=== PATIENT | male | born 1970 | race Caucasian/White ===

== ENCOUNTER 2023-04-07 07:03 | Outpatient (CLI) | payer SELFPAY ==
--- NOTE | 2023-04-07 07:15 | MR_ITS ---
[address] [address] Phone:?[phone] Fax:?[phone] Referring Physician Information: Bhavin An [address] [facility] [address] Phone:?[phone] Fax:?[phone] Patient:?Deondre Vega D.O.B:?1970 Sex:?Male Phone:?[phone] [facility] MRN:?[id number] Exam Date:?04/07/2023 EXAM: MRI EXAMINATION OF THE LEFT HIP CLINICAL INFORMATION: Left hip pain. Evaluate for possible internal derangement. TECHNICAL INFORMATION: Large [id number] coronal T1 and STIR images were obtained. Thin section coronal and sagittal proton density and T2-weighted spin echo sequences were obtained through the left hip followed by oblique axial proton density and axial fat saturation proton density images. There are no prior studies available for comparison. INTERPRETATION: Hip joint: There is a small to moderate left hip joint effusion. There is a broad appearance of AVN involving the superior, anterior and medial aspects of the left femoral head. There is an associated 1.6 x 0.6 cm subchondral fracture with mild flattening of the subchondral bone overlying the superomedial femoral head. Series 7 image 9 demonstrates an additional 2.2 cm subchondral fracture with mild flattening the subchondral bone of the anterosuperior femoral head. Mild to moderate changes of adjacent bone marrow edema signal. Chondral irregularity and thinning without evidence for associated full- thickness cartilage loss involves the mid to medial surfaces of the superior joint. The gluteus tendon insertions onto the greater trochanter are intact without tear or significant tendinopathy. No evidence of fluid signal abnormality to indicate trochanteric bursitis. Intact appearance of the iliopsoas muscle and tendon insertions. No evidence for iliopsoas bursitis. Bones and joints: Marked L4-5 degenerative disc disease. No occult fracture/stress reaction involves the sacrum. No appreciable changes of SI joint arthrosis. Additional AVN involves the contralateral, right femoral head. No subchondral collapse. No right hip joint effusion. No other bone marrow edema pattern is identified. Musculotendinous structures: Changes of right common hamstring origin tendinopathy with low to moderate grade partial tear. No evidence for an acute muscle belly strain injury. No other muscle belly edema pattern. Intrapelvic contents: No free fluid seen within the pelvis. No discrete intrapelvic mass is identified. Neurovascular structures: No discrete cyst, mass or other compression upon the portions visualized of sciatic or femoral nerves. CONCLUSION: 1. Broad AVN is identified involving the left femoral head. Areas of associated subchondral fracturing with mild flattening of the subchondral bone of the anterior and superomedial femoral head. Adjacent bone marrow edema signal. 2. Chondromalacia without evidence for full-thickness cartilage loss overlying the mid to medial aspect of the superior femoral head. 3. There is a small to moderate hip joint effusion. 4. No evidence for bursitis about the hip. 5. Additional AVN involves the contralateral, right femoral head. 6. Marked L4-5 degenerative disc disease. KES Electronically signed on 04/07/2023 1:31:00 PM by Wilfredo Freed M.D.
== END 2023-04-07 07:04 | disposition home or self-care (01) ==
PROVIDERS: PCP Family Medicine; Visit Provider Physician Assistant
DX: M25.552 Pain in left hip (principal); M94.252 Chondromalacia, left hip; M25.452 Effusion, left hip; M51.36 Other intervertebral disc degeneration, lumbar region
CPT/HCPCS: 73721

== ENCOUNTER 2025-06-15 11:01 | Emergency (ER) | payer SELFPAY ==
--- OUTSIDE RECORDS SUMMARY | 2025-06-15 11:04 | XMS_ITS | Clinical Summary ---
Author Organization [facility] Address [address] [place] [address] Care Team Providers Care Corporate Accounting Manager Name Role Phone Unavailable Primary Care Provider Unavailabl e Source Comments You are receiving this document as you are listed as the primary care provider,follow-up provider, or the patient has been referred to you for consultation.This is in compliance with the Medicare andMedicaid EHR Incentive Program,which states Providers who transition their patient to another setting of careor provider of care or refers their patient to another provider of care shouldprovide summary care record for each transition of care or referral. [facility] Allergies No known active allergies Medications indomethacin (INDOCIN) 50 MG capsule Take 50 mg by mouth three times a day. 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 Gender Identity Not on file Sexual Orientation Not on file Last Filed Vital Signs Vital Sign Reading Time Taken Comments Blood Pressure 141/82 10/17/2021 12:22 PM LINKING MACHINE OPERATOR Pulse 61 10/17/2021 12:22 PM LINKING MACHINE OPERATOR Temperature 36.7 C (98 F) 10/17/2021 12:22 PM LINKING MACHINE OPERATOR Respiratory Rate 20 10/17/2021 12:22 PM LINKING MACHINE OPERATOR Oxygen Saturation 100% 10/17/2021 12:22 PM LINKING MACHINE OPERATOR Inhaled Oxygen Concentration - - Weight - - Height - - Body Mass Index - - Plan of Treatment Health Maintenance Due Date Last Done Comments Colon Cancer Screening Plan Due 1970 Hep C Screening (Preventive Services) 1970 PSA Screening Discussion 1971 HIV Screening (Preventive Services) 1987 Adult Preventive Visit 1989 HepB Vaccine (1) 1990 Cholesterol 2006 Pneumococcal Vaccine 50+ Yrs (1 of 1 - PCV) 2021 Zoster/Shingles Vaccine (1 of 2) 2021 DTaP/Tdap/Td Vaccine (2 - Tdap) 03/06/2023 03/06/2013 COVID-19 Vaccine (1 - season) 2025 Influenza Vaccine (#1) 2025 3, 07/07/2011, 07/08/2010, Additional history exists HepA Vaccine Aged Out No longer eligi ble based on patient's age to complete this topic Hib Vaccine Aged Out No longer eligi ble based on patient's age to complete this topic IPV (Polio) Vaccine Aged Out No longe r eligible based on patient's age to complete this topic MCV4 Vaccine Aged Out No longer eligi ble based on patient's age to complete this topic Meningococcal B Vaccine Aged Out No l onger eligible based on patient's age to complete this topic
--- OUTSIDE RECORDS SUMMARY | 2025-06-15 11:04 | XMS_ITS | Clinical Summary ---
Author Organization [facility] Address [address] [place] [address]. [place] [address] Care Team Providers Care Toy Assembler Wood Name Role Phone No Ref-Primary, Physician Primary Care Provider Allergies No known active allergies Medications polyvinyl alcohol (LIQUIFILM TEARS) 1.4 % ophthalmic solution Place 1 drop Into the left eye as needed for dry eyes 15 mL 10/24/2020 Active valACYclovir (VALTREX) 1000 mg tablet Take 1 tablet (1,000 mg) by mouth 3 times daily for 7 days 21 tablet 10/24/2020 Active Social History Tobacco Use Types Packs/Day Years Used Date Smoking Tobacco: Never Assessed Adolescent Education Answer Date Record ed Getting School Help Needed Not on file 06/10 Sex and Gender Information Value Date Recorded Sex Assigned at Not on file Legal Sex Male 4:45 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 Gender Identity Not on file Sexual Orientation Not on file Last Filed Vital Signs Vital Sign Reading Time Taken Comments Blood Pressure 142/85 10/24/2020 8:00 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 Pulse 87 10/24/2020 8:00 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 Temperature 36.8 C (98.3 F) 10/24/2020 4:57 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 Respiratory Rate 16 10/24/2020 8:31 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 Oxygen Saturation 96% 10/24/2020 8:00 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 Inhaled Oxygen Concentration - - Weight 85.7 kg (188 lb 15 oz) 10/24/2020 4:57 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 Height - - Body Mass Index - - Plan of Treatment Not on file Care Teams Toy Assembler Wood Relationship Specialty Start Date End Date No Ref-Primary, Physician PCP - General 10/24/20
--- OUTSIDE RECORDS SUMMARY | 2025-06-15 11:04 | XMS_ITS | Clinical Summary ---
Author Organization [facility] Address [address] [place] [id number] Care Team Providers Care Trestleman Name Role Phone Jayy Logan MD Primary Care Provider [phone] Allergies No known active allergies Medications multivitamin capsule Take 1 capsule by mouth once daily. 0 09/01/2011 Active Immunizations Immunization Administration Dates Next Due AMB Influenza, IIV3 (Age >=3 years)(Flu Clinic Only) 06/29/2013,07/07/2011,07/08/2010 Influenza, IIV3 (Age >=3 years) 06/19/2009 Social History Tobacco Use Types Packs/Day Years Used Date Smoking Tobacco: Never Smokeless Tobacco: Former Alcohol Use Standard Drinks/Week Comments Not Asked 0 (1 standard drink = 0.6 oz pur e alcohol) Sex and Gender Information Value Date Recorded Sex Assigned at Not on file Legal Sex Male 6:29 AM UPPER AND BOTTOM LACER HAND Gender Identity Not on file Sexual Orientation Not on file Obstetrics History Last Filed Vital Signs Vital Sign Reading Time Taken Comments Blood Pressure 124/78 09/01/2011 3:33 PM UPPER AND BOTTOM LACER HAND tow er Pulse 78 09/01/2011 3:33 PM UPPER AND BOTTOM LACER HAND Temperature 36.6 C (97.9 F) 09/01/2011 3:33 PM UPPER AND BOTTOM LACER HAND Respiratory Rate - - Oxygen Saturation - - Inhaled Oxygen Concentration - - Weight 84.3 kg (185 lb 12.8 oz) 09/01/2011 3:33 PM UPPER AND BOTTOM LACER HAND Height - - Body Mass Index - - Plan of Treatment Health Maintenance Due Date Last Done Comments Tetanus booster 1982 Depression screening for age 12+ 1983 HIV for age 15-65 1986 BMI (ht and wt on same day) for age 18+ 1989 Hepatitis C screening for ag e 18-79 1989 Hepatitis B series for 19+ ( 1 of 3 - 19+ 3-dose series) 1990 Colonoscopy through age 75 2016 Lipids for age 45-75 2016 Pneumococcal series for age 50+ (1 of 1 - PCV) 2021 Zoster (shingles) series for age 50+ (1 of 2) 2021 COVID-19 vaccine series (1 - 2023- season) 2025 Influenza Vaccine (#1) 2025 3, 07/07/2011, 07/08/2010, Additional history exists RSV vaccine for adults or (1 - 1-dose 75+ series) [address] [facility] Care Teams Trestleman Relationship Specialty Start Date End Date Jayy Logan MD [address] [place] [address] [facility] - General 06/30/06
[2025-06-15 11:14] VITALS: BP 142/92; PULSE 89; RESP 18; TEMP 36.6; O2SAT 97; BMI 28.0
--- NOTE | 2025-06-15 11:30 | CRLHL7_ITS ---
For Patients: As a result of the Century Cures Act, medical imaging exams and procedure reports are released immediately into your electronic medical record. You may view this report before your referring provider. If you have questions, please contact your health care provider. INDICATION: Elbow Swelling and pain TECHNIQUE: Elbow radiograph 3 views right COMPARISON: None FINDINGS: Bone: No acute fractures or aggressive bone lesions are identified. Joint: The elbow joint is unremarkable. No significant displacement of the anterior or posterior fat pads noted to suggest an effusion but the lateral exam is limited by patient rotation. Soft tissue: Mild swelling noted over the olecranon. No radiopaque foreign bodies are seen. IMPRESSION: 1. No acute osseous injuries are noted. 2. No significant displacement of the anterior or posterior fat pads noted to suggest an effusion but the lateral exam is limited by patient rotation. Dictated by: Alfa Portillo MD @ 06/15/2025 12:46:25 (Electronically Signed)
--- NOTE | 2025-06-15 11:30 | CRLHL7_ITS ---
For Patients: As a result of the Cures Act, medical imaging exams and procedure reports are released immediately into your electronic medical record. You may view this report before your referring provider. If you have questions, please contact your health care provider. INDICATION: Swelling and pain. TECHNIQUE: Left foot three views. COMPARISON: None. FINDINGS: No acute fracture or dislocation. [id number] degenerative changes greatest at the 1st metatarsophalangeal joint. There are ill-defined lucencies in the 1st metatarsal head and base of the proximal 1st phalanx with adjacent soft tissue swelling. Calcaneal enthesophytes. No radiopaque foreign body evident in the soft tissues. IMPRESSION: Findings worrisome for gout related arthropathy or other cellulitis near the left 1st metatarsal phalangeal joint. Dictated by Asad Obrien MD @ 06/15/2025 1:15:14 PM (Electronically Signed)
--- NOTE | 2025-06-15 11:30 | CRLHL7_ITS ---
For Patients: As a result of the Cures Act, medical imaging exams and procedure reports are released immediately into your electronic medical record. You may view this report before your referring provider. If you have questions, please contact your health care provider. INDICATION: Swelling and pain. TECHNIQUE: Right foot three views. COMPARISON: None. FINDINGS: Mild degenerative changes greatest at the 1st metatarsophalangeal joint. Calcaneal enthesophytes. No acute or other osseous abnormality. No radiopaque foreign body in the soft tissues. IMPRESSION: No acute osseous abnormality. Dictated by Asad Obrien MD @ 06/15/2025 1:16:37 PM (Electronically Signed)
--- NOTE | 2025-06-15 11:30 | CRLHL7_ITS ---
For Patients: As a result of the Century Cures Act, medical imaging exams and procedure reports are released immediately into your electronic medical record. You may view this report before your referring provider. If you have questions, please contact your health care provider. INDICATION: Wrist Swelling and pain TECHNIQUE: Wrist radiograph 3 views left COMPARISON: None FINDINGS: Bone: No acute fractures or aggressive bone lesions are identified. Joint: The radiocarpal, carpal, and carpometacarpal joints are unremarkable in appearance. Soft tissue: Unremarkable. No radiopaque foreign bodies are seen. IMPRESSION: 1. No acute osseous injuries are noted. Dictated by: Alfa Portillo MD @ 06/15/2025 12:47:01 (Electronically Signed)
[2025-06-15 11:53] LABS: Hematocrit* 39.7 % (37.0-53.0); Hemoglobin* 13.5 gm/dL (13.5-17.5); Immature Granulocytes Pct Auto 1.3 %; Mean Corpuscular HGB Conc 34 gm/dL (32-36); Mean Corpuscular Hemoglobin 31 pg (26-34); Mean Corpuscular Volume 92 fL (80-100); RDW Coefficient of Variation % 12.3 % (11.5-15.5); Red Blood Count* 4.32 m/uL (4.30-5.90); White Blood Count* 15.84 K/uL (4.50-11.00)
[2025-06-15 11:55] LABS: Immature Granulocytes Abs Auto 0.20 K/uL (0.00-0.30); Lymphocytes Absolute Auto 0.60 K/uL (0.90-2.90); Slide Review Reflex No
[2025-06-15 12:06] LABS: Albumin* 4.0 g/dL (3.3-5.0); Chloride* 97 mmol/L (96-114); Sodium* 136 mmol/L (135-149)
[2025-06-15 12:07] LABS: Potassium* 3.8 mmol/L (3.6-5.1)
[2025-06-15 12:09] LABS: Alanine Aminotransferase* 221 U/L (4-50); Alkaline Phosphatase* 139 U/L (40-150); Anion Gap 10 mEq/L (7-15); Aspartate Amino Transferase* 138 U/L (12-35); Bilirubin Direct* 0.2 mg/dL (0.0-0.5); Bilirubin Total* 0.7 mg/dL (0.1-1.5); Blood Urea Nitrogen* 16 mg/dL (7-30); Carbon Dioxide* 29 mmol/L (20-32); Creatinine* 0.8 mg/dL (0.5-1.5); Est. Creatinine Clearance* 98.69; Estimated Glomerular Filt Rate 105 ml/min; Total Protein* 7.7 g/dL (6.0-8.3)
[2025-06-15 12:10] LABS: Calcium* 9.5 mg/dL (8.4-10.6); Glucose* 273 mg/dL (60-115)
[2025-06-15 12:27] LABS: Procalcitonin* 0.18 ng/mL (<0.50)
--- NOTE | 2025-06-15 13:02 | ED.LOWEXIN ---
HPI - Extremity Injury (Lower) General Date Seen: 06/15/25 Chief Complaint: Extremity Pain/Injury, Lower Stated Complaint: Possible Gout, Left foot, right elbow Time Seen by Provider: 06/15/25 11:04 Source: patient, family, RN notes reviewed and old records reviewed Mode of arrival: ambulatory Limitations: no limitations History of Present Illness HPI Narrative: Patient is the 55-year-old gentleman who suffer from gout in the past presents here with gout worsening over the past 1-2 weeks, he thinks this all started with a fall last , ended up in the [facility], was diagnosed with L4-L5 herniation. He was prescribed a prednisone taper starting on the , and this was increased 2 days after. To 50 mg a day, he has noted joint swelling, in his left 1st MTP, right 5th toe, right elbow, left wrist, no history of trauma to any of these injuries except the left wrist. Where he fell in the never had this x-rayed at the [facility]. He notes that it is very sore and swollen maybe a little bit less painful than it was he was initially given oxycodone but could not handle this. It is just been on the prednisone. Is actually not physically seen a physician or provider, only did [facility]. No history of any IVs, use of street drugs, history of sepsis, injury fevers chills or sweats, just this pain and swelling. History of a right hip replacement secondary to avascular necrosis.Here with his , No history of tick bites, works as the [employer] Severity: moderate Related Data Home Medications ?Medication ?Instructions ?Recorded ?Confirmed prednisone 50 mg tablet 50 mg PO DAILY 06/15/25 06/15/25 Previous Rx's ?Medication ?Instructions ?Recorded colchicine 0.6 mg capsule 0.6 mg PO BID #60 caps 06/15/25 Allergies Allergy/AdvReac Type Severity Reaction Status Date / Time oxycodone AdvReac chilled, Verified 06/15/25 11:13 vomiting Review of Systems Status of ROS: Reports: 10 or more systems reviewed and unremarkable except as noted in History and below [facility] Medical History Right knee pain (~04/08/21) ?M25.561 - Pain in right knee (ICD-10) Social History Smoking Status: Never smoker How often do you have a drink containing alcohol: 2-4 times a month AUDIT-C Alcohol total score: 2 Non-prescribed substance use: denies use Exam Narrative: Exam Narrative: On examination, very striking tophi on his left 1st MTP, with some redness around it right red 5th metatarsal, mild swelling noted of the right elbow, inability to fully move it he tells me. On examination is right elbow has flexion from 30 agreed degrees through 90. 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 He is able to come approximately 10? past neutral on the left side. Some very mild swelling of his D IP is are noted. Right 5th toe swollen, along with the left MTP. Pulses are normal, no overlying cellulitis. Oropharynx normal no lymphadenopathy anterior posterior chains, chest is good air entry bilaterally heart sounds are normal, slightly obese abdomen, no tenderness to palpation and no organomegaly. Const: Vital Signs, click to edit/add: Vital Signs - 24 hr 06/15/25 11:14 Temperature 97.8 F Pulse Rate [Pulse Oximeter] 89 Respiratory Rate 18 Blood Pressure [Ri ght Upper Arm] 142/92 H Pulse Oximetry 97 Oxygen Delivery Me thod Room Air Documenting provider has reviewed patient's vital signs: yes Course Course ED Course: I went back in and talked to the patient although we cannot totally rule out a sepsis causing this this does look like polyarticular gout. Given the tophi on the left foot. And the presentation in gentleman with really no risk factors for infectious etiology. This is would be atypical for rheumatoid arthritis/, Lyme arthritis, or gonococcal. His liver transaminases tests were slightly elevated more likely from DENNY then in a functional problem. Glucose was significantly elevated also. White count was elevated which often see with gout, procalcitonin was normal CRP was elevated also. After discussion with him I think it would be reasonable to trial a slightly lower dose of colchicine, to see if we give him some relief. 0.5 mg p.o. b.i.d., close follow-up he does have a primary care physician so I suggested Dr. Bustos. He lots of questions about the gouty tophi, unfortunately we do not do a lot with this, has surgery on anything like this can often flare. Minimal use of acetaminophen given the elevation in transaminases is suggested, and we talked about use of hydrocodone, we will use a small supply this. Went over signs and symptoms of worsening including complications secondary to use of the colchicine. He may need help urine all more on the correction, as his acute at elevation is not seen on uric acid. Vital Signs Vital signs: Initial Vital Signs Temperature 97.8 F 06/15/25 11:14 Temperature Source Temporal Artery Scan 06/15/25 11:14 Pulse Rate 89 06/15/25 11:14 Respiratory Rate 18 06/15/25 11:14 Blood Pressure 142/92 H 06/15/25 11:14 Blood Pressure Mean 108 H 06/15/25 11:14 Blood Pressure Position Semi-Fowlers 06/15/25 11:14 Pulse Oximetry 97 06/15/25 11:14 Oxygen Delivery Method Room Air 06/15/25 11:14 Vital Signs Temperature 97.8 F 06/15/25 11:14 Pulse Rate 89 06/15/25 11:14 Respiratory Rate 18 06/15/25 11:14 Blood Pressure 142/92 H 06/15/25 11:14 Pulse Oximetry 97 06/15/25 11:14 Oxygen Delivery Method Room Air 06/15/25 11:14 Temperature 97.8 F 06/15/25 11:14 Pulse Rate 89 06/15/25 11:14 Respiratory Rate 18 06/15/25 11:14 Blood Pressure 142/92 H 06/15/25 11:14 Pulse Oximetry 97 06/15/25 11:14 Oxygen Delivery Method Room Air 06/15/25 11:14 MDM - Extremity Injury (Lower) MDM Narrative Medical decision making narrative: During this evaluation I think gout is leading hypothesis, specially with the tophi, other possibilities include septic arthritis. Lyme disease, rheumatoid arthritis, endocarditis with septic and emboli. Medical Records Attestation: I reviewed the patient's medical records. Lab Data Attestation: I reviewed the patient's lab results. Labs: Lab Results 06/15/25 Range/Units 11:45 WBC 15.84 H (4.50-11.00) K/uL RBC 4.32 (4.30-5.90) m/uL Hgb 13.5 (13.5-17.5) gm/dL Hct 39.7 (37.0-53.0) % MCV 92 (80-100) fL MCH 31 (26-34) pg MCHC 34 (32-36) gm/dL RDW Coeff of Eufemia 12.3 (11.5-15.5) % Plt Count 351 (140-440) K/uL Neut % (Auto) 89.4 H (42.0-72.0) % Lymph % (Auto) 3.6 L (20-44) % [place] % (Auto) 5.6 (0.0-11.0) % Eos % (Auto) 0.0 (0.0-7.0) % Baso % (Auto) 0.1 (0.0-3.0) % Neut # (Auto) 14.20 H (1.7-7.0) K/uL Lymph # (Auto) 0.60 L (0.90-2.90) K/uL [place] # (Auto) 0.90 (0.00-0.90) K/UL Eos # (Auto) 0.00 (0.00-0.50) K/uL Baso # (Auto) 0.00 (0.00-0.30) K/uL Abs Immat Gran (auto) 0.20 (0.00-0.30) K/uL Imm/Tot Granulo (auto) 1.3 % Sodium 136 (135-149) mmol/L Potassium 3.8 (3.6-5.1) mmol/L Chloride 97 (96-114) mmol/L Carbon Dioxide 29 (20-32) mmol/L Anion Gap 10 (7-15) mEq/L BUN 16 (7-30) mg/dL Creatinine 0.8 (0.5-1.5) mg/dL Estimated Creat Clear 98.69 Estimated GFR 105 ml/min Glucose 273 H (60-115) mg/dL Uric Acid 6.9 (2.2-8.4) mg/dL Calcium 9.5 (8.4-10.6) mg/dL Total Bilirubin 0.7 (0.1-1.5) mg/dL Direct Bilirubin 0.2 (0.0-0.5) mg/dL AST 138 H (12-35) U/L ALT 221 H (4-50) U/L Alkaline Phosphatase 139 (40-150) U/L C-Reactive Protein 5.8 H (0.5-1.0) mg/dL Total Protein 7.7 (6.0-8.3) g/dL Albumin 4.0 (3.3-5.0) g/dL Procalcitonin 0.18 (<0.50) ng/mL Imaging Data X-ray wrist: Attestation: I have reviewed the pertinent imaging results. My impression: Evidence of significant narrowing of the 1st MTP joint on the thinking left foot Radiologist's impression: atient: Deondre Vega MR#: [id number] : 1970 Acct:[id number] Loc: ED Service Date: 06/15/25 Attending : Ordering Physician: Santino Uriostegui M.D. Date of Service: 06/15/25 Procedure(s): XR wrist LT min 3V Accession Number(s): [id number] cc: Provider,Not a Local; Santino Uriostegui M.D.~ For Patients: As a result of the Cures Act, medical imaging exams and procedure reports are released immediately into your electronic medical record. You may view this report before your referring provider. If you have questions, please contact your health care provider. INDICATION: Wrist Swelling and pain TECHNIQUE: Wrist radiograph 3 views left COMPARISON: None FINDINGS: Bone: No acute fractures or aggressive bone lesions are identified. Joint: The radiocarpal, carpal, and carpometacarpal joints are unremarkable in appearance. Soft tissue: Unremarkable. No radiopaque foreign bodies are seen. IMPRESSION: 1. No acute osseous injuries are noted. Dictated by: Alfa Portillo MD @ 06/15/2025 12:47:01 (Electronically Signed)[place] [address] Diagnostic Imaging Report Patient: Deondre Vega MR#: [id number] : 1970 Acct:[id number] Loc: ED Service Date: 06/15/25 Attending : Ordering Physician: Santino Uriostegui M.D. Date of Service: 06/15/25 Procedure(s): XR elbow RT min 3V Accession Number(s): [id number] cc: Provider,Not a Local; Santino Uriostegui M.D.~ For Patients: As a result of the Cures Act, medical imaging exams and procedure reports are released immediately into your electronic medical record. You may view this report before your referring provider. If you have questions, please contact your health care provider. INDICATION: Elbow Swelling and pain TECHNIQUE: Elbow radiograph 3 views right COMPARISON: None FINDINGS: Bone: No acute fractures or aggressive bone lesions are identified. Joint: The elbow joint is unremarkable. No significant displacement of the anterior or posterior fat pads noted to suggest an effusion but the lateral exam is limited by patient rotation. Soft tissue: Mild swelling noted over the olecranon. No radiopaque foreign bodies are seen. IMPRESSION: 1. No acute osseous injuries are noted. 2. No significant displacement of the anterior or posterior fat pads noted to suggest an effusion but the lateral exam is limited by patient rotation. Dictated by: Alfa Portillo MD @ 06/15/2025 12:46:25 (Electronically Signed)[address] [address] Diagnostic Imaging Report Patient: Deondre Vega MR#: [id number] : 1970 Acct:[id number] Loc: ED Service Date: 06/15/[address]: Ordering Physician: Santino Uriostegui M.D. Date of Service: 06/15/25 Procedure(s): XR foot RT min 3V Accession Number(s): [id number] cc: Provider,Not a Local; Santino Uriostegui M.D.~ For Patients: As a result of the Cures Act, medical imaging exams and procedure reports are released immediately into your electronic medical record. You may view this report before your referring provider. If you have questions, please contact your health care provider. INDICATION: Swelling and pain. TECHNIQUE: Right foot three views. COMPARISON: None. FINDINGS: Mild degenerative changes greatest at the 1st metatarsophalangeal joint. Calcaneal enthesophytes. No acute or other osseous abnormality. No radiopaque foreign body in the soft tissues. IMPRESSION: No acute osseous abnormality. Dictated by Asad Obrien MD @ 06/15/2025 1:16:37 PM (Electronically Signed)[address] [address] Diagnostic Imaging Report Patient: Deondre Vega MR#: [id number] : 1970 Acct:[id number] Loc: ED Service Date: 06/15/[address]: Ordering Physician: Santino Uriostegui M.D. Date of Service: 06/15/25 Procedure(s): XR foot LT min 3V Accession Number(s): [id number] cc: Provider,Not a Local; Santino Uriostegui M.D.~ For Patients: As a result of the Cures Act, medical imaging exams and procedure reports are released immediately into your electronic medical record. You may view this report before your referring provider. If you have questions, please contact your health care provider. INDICATION: Swelling and pain. TECHNIQUE: Left foot three views. COMPARISON: None. FINDINGS: No acute fracture or dislocation. Ovmi-bj-jhlbfkdl degenerative changes greatest at the 1st metatarsophalangeal joint. There are ill-defined lucencies in the 1st metatarsal head and base of the proximal 1st phalanx with adjacent soft tissue swelling. Calcaneal enthesophytes. No radiopaque foreign body evident in the soft tissues. IMPRESSION: Findings worrisome for gout related arthropathy or other cellulitis near the left 1st metatarsal phalangeal joint. Dictated by Asad Obrien MD @ 06/15/2025 1:15:14 PM (Electronically Signed) Discharge Plan Discharge Clinical Impression: Gout, Elevated blood sugar, Elevated transaminase level Patient Disposition: Home w/ Parent or Adult Condition: Unchanged Instructions: Low Purine Diet (ED), Gout (ED), Nondiabetic Hyperglycemia (ED), Diabetic Hyperglycemia (ED) Additional Instructions: Home rest take your colchicine as directed, stop the prednisone. Follow-up with Dr. Bustos as directed. I would see him this week. He should see a difference with the cold seen within a day or 2. I had decreased her dose is slightly as there was some elevation of your liver function test. I suspect that this is from non alcoholic steatohepatitis. Return here if increasing swelling redness fevers chills or signs of infection which I am not seeing today. Might help to be on a low purine diet. Take the colchicine as directed, take it for 3-4 days after he get resolution of your swelling and pain. Stop it if significant nausea vomiting, abdominal pain or diarrhea. Activity Level: Light activity Discharge Diet: Other Diet Detail: Low purine diet Prescriptions: New colchicine 0.6 mg capsule 0.6 mg PO BID Qty: 60 2RF No Action prednisone 50 mg tablet 50 mg PO DAILY Follow Up/Referrals: Dylan Bustos MD [Staff Physician, Family Practice] Provider,Not a Local [Primary Care Provider, Family Practice] Stand Alone Forms: [facility] Info Instructions
== END 2025-06-15 14:23 | disposition home or self-care (01) ==
PROVIDERS: Emergency Provider Family Medicine
DX: M10.9 Gout, unspecified (principal); R73.9 Hyperglycemia, unspecified; R74.01 Elevation of levels of liver transaminase levels; M79.672 Pain in left foot; M79.671 Pain in right foot; M25.521 Pain in right elbow; M25.532 Pain in left wrist; Z79.52 Long term (current) use of systemic steroids
CPT/HCPCS: 36415; 73080; 73110; 73630; 80048; 80076; 84145; 84550; 85025; 86140; 87040; 99284; 99285

== ENCOUNTER 2025-06-18 12:22 | Outpatient (CLI) | payer OTHER, SELFPAY | END 2025-06-18 12:23 | disposition home or self-care (01) | PROVIDERS: PCP Family Medicine; Visit Provider Family Medicine | DX: M25.552 Pain in left hip (principal); M87.051 Idiopathic aseptic necrosis of right femur; M87.052 Idiopathic aseptic necrosis of left femur; M10.9 Gout, unspecified; R73.9 Hyperglycemia, unspecified | CPT/HCPCS: 84550; 86038; 86140; 86431 ==

== ENCOUNTER 2025-07-16 07:56 | Outpatient (CLI) | payer OTHER, SELFPAY | END 2025-07-16 07:57 | disposition home or self-care (01) | PROVIDERS: PCP Family Medicine; Visit Provider Family Medicine | DX: R53.83 Other fatigue (principal); M10.9 Gout, unspecified; Z13.9 Encounter for screening, unspecified | CPT/HCPCS: 80061; 80076; 84403; 84550; G0103 ==

== ENCOUNTER 2025-08-03 08:26 | Inpatient (IN) | payer OTHER, SELFPAY ==
[2025-08-03] VITALS (23 sets, daily range): BP systolic 134–169; BP diastolic 87–120; PULSE 57–70; RESP 14–18; TEMP 36.3–36.7; O2SAT 94–98; BMI 29.0
--- NOTE | 2025-08-03 08:52 | CRLHL7_ITS ---
For Patients: As a result of the Century Cures Act, medical imaging exams and procedure reports are released immediately into your electronic medical record. You may view this report before your referring provider. If you have questions, please contact your health care provider. INDICATION: Gout. Wound. Infection. TECHNIQUE: Intravenous contrast enhanced CT of the left foot. 91 mL Isovue 370 intravenous contrast was administered. COMPARISON: Radiographs from 06/15/2025. FINDINGS: There is severe arthrosis of the 1st MTP joint space with erosions and both capsular and periarticular soft tissue calcifications compatible with gouty arthropathy. There are also capsular and periarticular calcifications about the interphalangeal joint of the great toe which likely relate to gouty arthropathy. Small erosion of the dorsal base of the distal phalanx. There is mineralization/calcification associated with a few other joint spaces. Erosion of the medial aspect of the talar head likely relate to gouty arthropathy. No acute fracture. There is a soft tissue wound involving the medial forefoot. Infiltration of the underlying soft tissues may relate to cellulitis versus changes related to the patient`s underlying gouty arthropathy. No tracking soft tissue gas. Possible small amount of subcutaneous fluid along the medial aspect of the 1st MTP joint region. No moderately large well-defined collection. IMPRESSION: 1. Findings compatible with gouty arthropathy involving the left foot with capsular and periarticular soft tissue calcifications, erosions and soft tissue infiltration. 2. Soft tissue wound involving the medial forefoot. The infiltration of the underlying soft tissues may relate to cellulitis versus changes of the patient`s gouty arthropathy. 3. Possible small amount of medial subcutaneous fluid adjacent to the 1st MTP joint region underlying the wound. No moderate or large well-defined collection. No tracking soft tissue gas. Please note that all CT scans at this facility use dose modulation, iterative reconstruction, and/or weight-based dosing when appropriate to reduce radiation dose to as low as reasonably achievable. Dictated by Gurpreet Avalos MD @ 08/04/2025 7:35:38 AM (Electronically Signed)
--- NOTE | 2025-08-03 08:54 | ED_ITS ---
HPI - General Adult General Chief complaint: Laceration/Wound Stated complaint: wound on left foot Time Seen by Provider: 08/03/25 08:33 History of Present Illness HPI narrative: Patient is a 55-year-old gentleman who has known history of gout. He has obvious chronic lateral swelling of the 1st metatarsal joint left foot.. Over last several days joint is become more red and swollen. It ruptured earlier today is draining exudate material. Patient has no signs of systemic infection. He has had no fevers no chills no night sweats. The redness of the foot has extended up into the anterior ankle. Patient states he has been compliant with his extensive gout regiment. He did not open the wound today but has proximally 2.5 cm ulceration on the lateral aspect of the 1st MTP of the left foot. Patient's pain is moderate. He has been trying to stay off his foot the last several days. Related Data Previous Rx's ?Medication ?Instructions ?Recorded allopurinol 300 mg tablet 300 mg PO QDAY #90 tabs 06/19 06/12 colchicine 0.6 mg capsule 0.6 mg PO BID #180 caps 06/19 06/12 probenecid 500 mg tablet 500 mg PO BID #180 tabs 06/19 06/12 prednisone 10 mg tablet 10 mg PO QDAY #30 tabs 07/31 Allergies Allergy/AdvReac Type Severity Reaction Status Date / Time oxycodone AdvReac chilled, Verified 08/03/25 08:35 vomiting Review of Systems Status of ROS: Reports: 10 or more systems reviewed and unremarkable except as noted in History and below [facility] Medical History Avascular necrosis of bones of both hips ?M87.051 - 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) ?M87.052 - Idiopathic aseptic necrosis of left femur (ICD-10) Gout ?M10.9 - Gout, unspecified (ICD-10) Surgical History History of total left hip arthroplasty ?Z96.642 - Presence of left artificial hip joint (ICD-10) 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: , 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, 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 What is your current living situation?: I presently have a place to live Problems where you live: no known problems In the past 12 months, utilities in danger of being shut off: no In past 12 months, lack of transportation kept you from medical appts, meetings, work, or getting things needed for daily living: no In the past 12 mos, have been you worried that your food would run out before you had money to buy more?: never true In the past 12 mos, the food you bought just didn't last and you didn't have money to buy more?: never true Smoking Status: Never smoker How often do you have a drink containing alcohol: 2-4 times a month AUDIT-C Alcohol total score: 2 Non-prescribed substance use: denies use How often does anyone, including family, friends and others, physically hurt you : never How often does anyone, including family, friends and others, insult or talk down to you: never How often does anyone, including family, friends and others, threaten you with harm: never How often does anyone, including family, friends and others, scream or curse at you: never Exam Narrative: Exam Narrative: EXAM GENERAL: Patient appears comfortable and well. EYES: No scleral icterus. ENT: Tympanic membranes and oropharynx normal. THYROID: no thyroid nodules or thyromegaly. LYMPH: No supraclavicular or cervical lymphadenopathy. SKIN: Visible skin seen during exam normal or with benign process only. EXT: Erythema noted in the superior foot on the left with significant ulceration with exudate noted over the medial aspect of the 1st MTP. HEART: Regular rate and rhythm with no murmurs, rubs, or gallops. LUNGS: Clear to auscultation bilaterally with no crackles or wheezes. ABD: Soft, non tender, non distended. PSYCH: Good eye contact, speech is not pressured. Const: Vital Signs, click to edit/add: Vital Signs - 24 hr 08/03/25 08:37 Temperature 97.5 F L Pulse Rate [Pulse Oximeter] 58 L Respiratory Rate 14 Blood Pressure [Ri ght Upper Arm] 135/87 Pulse Oximetry 98 Oxygen Delivery Me thod Room Air Course Course ED Course: Did collect broke out all lactate a CRP ESR CBC comprehensive metabolic panel blood cultures x2. I get a CT of his left foot and I did send off a uric acid level. Vital Signs Vital signs: Initial Vital Signs Temperature 97.5 F L 08/03/25 08:37 Temperature Source Temporal Artery Scan 08/03/25 08:37 Pulse Rate 58 L 08/03/25 08:37 Pulse Rhythm Regular 08/03/25 08:37 Respiratory Rate 14 08/03/25 08:37 Blood Pressure 135/87 08/03/25 08:37 Blood Pressure Mean 103 08/03/25 08:37 Blood Pressure Position Sitting 08/03/25 08:37 Pulse Oximetry 98 08/03/25 08:37 Oxygen Delivery Method Room Air 08/03/25 08:37 Vital Signs Temperature 97.5 F L 08/03/25 08:37 Pulse Rate 58 L 08/03/25 08:37 Respiratory Rate 14 08/03/25 08:37 Blood Pressure 135/87 08/03/25 08:37 Pulse Oximetry 98 08/03/25 08:37 Oxygen Delivery Method Room Air 08/03/25 08:37 Temperature 97.5 F L 08/03/25 08:37 Pulse Rate 58 L 08/03/25 08:37 Respiratory Rate 14 08/03/25 08:37 Blood Pressure 135/87 08/03/25 08:37 Pulse Oximetry 98 08/03/25 08:37 Oxygen Delivery Method Room Air 08/03/25 08:37 Medications Administered Medications: Discontinued Medications Generic Name Dose Route Start Last Admin Trade Name Freq PRN Reason Stop Dose Admin Piperacillin Sod/Tazobactam 100 mls @ 200 mls/hr 08/03/25 08:58 08/03/25 09:53 Sod 3.375 gm/ Sodium Chloride IVPB 08/03/25 08:59 200 mls/hr ONCE ONE Administration Medical Decision Making [facility] Narrative Medical decision making narrative: Patient presents with weeping draining lesion on the right foot. He has history of gout which broke open last night now he has erythema extending up the superior aspect of his foot. He has had no fevers no chills no night sweats. Does have leukocytosis and elevated inflammatory markers. I did do a CT of his foot and he has no evidence of abscess. After cultures were obtained I did treat with Zosyn and vancomycin. Patient case discussed with hospitalist as well as Orthopedics patient will be proceeding to the operating room. Lab Data Labs: Lab Results 08/03/25 Range/Units 09:12 WBC 16.65 H (4.50-11.00) K/uL RBC 4.42 (4.30-5.90) m/uL Hgb 13.3 L (13.5-17.5) gm/dL Hct 40.3 (37.0-53.0) % MCV 91 (80-100) fL MCH 30 (26-34) pg MCHC 33 (32-36) gm/dL RDW Coeff of Eufemia 12.9 (11.5-15.5) % Plt Count 242 (140-440) K/uL Neut % (Auto) 79.6 H (42.0-72.0) % Lymph % (Auto) 11.2 L (20-44) % [place] % (Auto) 7.9 (0.0-11.0) % Eos % (Auto) 0.2 (0.0-7.0) % Baso % (Auto) 0.1 (0.0-3.0) % Neut # (Auto) 13.30 H (1.7-7.0) K/uL Lymph # (Auto) 1.90 (0.90-2.90) K/uL [place] # (Auto) 1.30 H (0.00-0.90) K/UL Eos # (Auto) 0.00 (0.00-0.50) K/uL Baso # (Auto) 0.00 (0.00-0.30) K/uL Abs Immat Gran (auto) 0.20 (0.00-0.30) K/uL Imm/Tot Granulo (auto) 1.0 % ESR 79 H (2-15) mm/hr Sodium 140 (135-149) mmol/L Potassium 4.8 (3.6-5.1) mmol/L Chloride 103 (96-114) mmol/L Carbon Dioxide 28 (20-32) mmol/L Anion Gap 9 (7-15) mEq/L BUN 16 (7-30) mg/dL Creatinine 0.8 (0.5-1.5) mg/dL Estimated Creat Clear 98.69 Estimated GFR 105 ml/min Glucose 118 H (60-115) mg/dL Uric Acid 3.8 (2.2-8.4) mg/dL Calcium 9.6 (8.4-10.6) mg/dL Total Bilirubin 1.0 (0.1-1.5) mg/dL AST 22 (12-35) U/L ALT 35 (4-50) U/L Alkaline Phosphatase 94 (40-150) U/L C-Reactive Protein 17.6 H (0.5-1.0) mg/dL Total Protein 7.7 (6.0-8.3) g/dL Albumin 4.1 (3.3-5.0) g/dL Procalcitonin 1.30 H (<0.50) ng/mL Discharge Plan Discharge Clinical Impression: Gout Patient Disposition: Admitted As Observation Condition: Stable Activity Level: Other Discharge Diet: Other
[2025-08-03 09:22] LABS: Hematocrit* 40.3 % (37.0-53.0); Hemoglobin* 13.3 gm/dL (13.5-17.5); Immature Granulocytes Pct Auto 1.0 %; Mean Corpuscular HGB Conc 33 gm/dL (32-36); Mean Corpuscular Hemoglobin 30 pg (26-34); Mean Corpuscular Volume 91 fL (80-100); RDW Coefficient of Variation % 12.9 % (11.5-15.5); Red Blood Count* 4.42 m/uL (4.30-5.90); White Blood Count* 16.65 K/uL (4.50-11.00)
[2025-08-03 09:24] LABS: Immature Granulocytes Abs Auto 0.20 K/uL (0.00-0.30); Lymphocytes Absolute Auto 1.90 K/uL (0.90-2.90); Slide Review Reflex No
[2025-08-03 09:35] LABS: Albumin* 4.1 g/dL (3.3-5.0); Chloride* 103 mmol/L (96-114); Sodium* 140 mmol/L (135-149)
[2025-08-03 09:36] LABS: Potassium* 4.8 mmol/L (3.6-5.1)
[2025-08-03 09:38] LABS: Alanine Aminotransferase* 35 U/L (4-50); Anion Gap 9 mEq/L (7-15); Aspartate Amino Transferase* 22 U/L (12-35); Blood Urea Nitrogen* 16 mg/dL (7-30); Carbon Dioxide* 28 mmol/L (20-32); Creatinine* 0.8 mg/dL (0.5-1.5); Est. Creatinine Clearance* 98.69; Estimated Glomerular Filt Rate 105 ml/min
[2025-08-03 09:39] LABS: Alkaline Phosphatase* 94 U/L (40-150); Bilirubin Total* 1.0 mg/dL (0.1-1.5); Calcium* 9.6 mg/dL (8.4-10.6); Glucose* 118 mg/dL (60-115); Total Protein* 7.7 g/dL (6.0-8.3)
[2025-08-03] MEDS: PIPERACILLIN/TAZOBACTAM 3.375 GM in 0.9 % SODIUM CHLORIDE Mini-bag 100 ML IVPB ×3 (09:53→22:16)
[2025-08-03 10:00] LABS: Erythrocyte SedimentationRate* 79 mm/hr (2-15)
[2025-08-03 10:27] LABS: Procalcitonin* 1.30 ng/mL (<0.50)
--- NOTE | 2025-08-03 11:28 | PM.IMHP1 ---
Assessment and Plan Assessment and plan (1) Joint abscess: Problem comment: infected tophi? joint abscess? staph likely on gram stain. to the OR for I/D and joint exam await findings from the OR for the rest of the care plan Status: Acute (2) Gout: Problem comment: Left 1st MTP, right 2nd and 5th DTPs, right elbow tophi present uric acid normal no crystal examine previously; CPPD? allopurinol, colchine, probenecid from PCP Status: Acute Hospitalist- H&P: HPI History of Present Illness Date Seen: 08/03/25 Chief complaint: wound on left foot Narrative: ADMISSION HISTORY AND PHYSICAL - HOSPITALIST Chief Complaint: Left large toe infection HPI: This is a 55 y/o with a history of gout that presents with a week of erythema with subsequent spontaneous rupture of an abscess along the medial side of his left MTP joint. 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 There was a large tophi noted on the left MTP. His uric acid is always normal in the acute and recovery phase. His PCP has started him on allopurinol, colchine, probenacid, and he has been on prednisone taper since late May. SHEFALI and RF negative. +hyperlipidemia on screening labs. casual alcohol. ER COURSE: Foot CT IV abx - Vanc and Zosyn started labs CODE STATUS: FULL CODE PCP: Dylan Bustos EMERGENCY CONTACT PLAN: , Ary, I've updated the PFSH, medications and allergies in the Expanse tabs. INVESTIGATIONS: LABS/MICRO/ECG/IMAGING Afebrile Blood pressure 135/87 Pulse 58 Respiration 14 98% on room air 84 kilos CBC reveals an elevated white blood cell count of 16.65. Hemoglobin 13.3. Neutrophils 79.6%. Normal platelets. Chemistries and renal function are normal. Creatinine is 0.8. GFR 105. Glucose 118. Recent A1c was 5.6. Uric acid is 3.8. LFTs normal. CRP 17.6 Procalcitonin 1.3 G stain shows Gram-positive cocci in clusters, likely staff sub species Wound culture pending 2 blood cultures drawn and pending Left Foot CT FINDINGS: Severe soft tissue swelling and heterotopic soft tissue ossification and soft tissue hyperdensity around the left great toe MTP joint. There are several periarticular erosions typical of gout. There is also a subchondral cystic lesion or erosion in the great toe phalanx at the articular surface that measures 11 x 7 millimeters. This is not a new finding and was present on the prior radiographs. No definitive findings of osteomyelitis. No soft tissue gas or deep fascial gas. There is a fairly well-circumscribed subchondral erosion in the superior talar neck with some heterotopic hyperdense soft tissue and dystrophic calcifications at the talonavicular joint in a pattern typical also of gout. There is generalized edema. There is not a discrete well-circumscribed soft tissue abscess or collection. No acute or healing fractures. No dislocation. IMPRESSION: Multifocal left foot gout. No discrete abscess or definitive osteomyelitis. REVIEW OF SYSTEMS: 12-point ROS completed with patient and negative unless otherwise stated in HPI or below. PHYSICAL EXAM: CONSTITUTIONAL: Conversive, good historian. A/O. Knows setting and context. GENERAL: Well nourished. No respiratory distress. Speaks in full sentences. VITAL SIGNS: see record. HEENT: Sclerae are anicteric. No petechiae. CARDIAC: rhythm is regular. There is no S3 or rub. No harsh murmurs. Extremities show trace edema with symmetrical pulses. LEFT LOWER EXTREMITY: (see pics); erythema/swelling noted from just distal of the left 1st MTP joint thru the midfoot. erythema up proximal to the ankle. Boggy fullness with open wound medial edge of the MTP. NVI. Range of motion about the MTP appears normal; dorsiflexion, plantar flexion medial and lateral normal. NEURO: Speech is fluent. A brief neurologic exam is negative. SKIN: No rashes, petechiae, concerning changes PSYCHIATRIC: Euthymic. before spontaneous rupture ADMIT TO MEDSURG: FLOOR CARE DVT: SCDS GI: PO intake Time spent: Today I spent 75 minutes seeing the patient, discussing the patient with ER staff, reviewing Expanse and EPIC notes/diagnostics, discussing the care plan with our care time that includes social work, PT/OT, pharmacy, RT, detention and documenting my impressions and plan in the medical record. MEDICAL NECESSITY FOR HOSPITALIZATION Anticipated midnights in the hospital: 2 Admitting diagnosis: joint abscess; cellulitis, polyarticular gouty arthritis Risk of morbidity and mortality: low This patient will require hospital services as outlined in the assessment and plan in order to stabilize and be safely discharged to a lower level of care. Because of the risk and acuity as described above, this patient cannot be managed at a lower level of care. LENGTH OF STAY: 2 IP ? Anticipated LOS>2 midnights due to acuity of clinical presentation requiring inpatient level of care Medical Decision Making Medical Decision Making Has patient completed a Health Care Directive: No PFSH PFSH Medical History (Updated 08/03/25 @ 12:22 by Daisy Wiley MD) Hyperlipidemia ?E78.5 - Hyperlipidemia, unspecified (ICD-10) Avascular necrosis of bones of both hips ?M87.051 - 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) ?M87.052 - Idiopathic aseptic necrosis of left femur (ICD-10) Gout ?M10.9 - Gout, unspecified (ICD-10) Surgical History (Updated 08/03/25 @ 12:09 by Daisy Wiley MD) History of vasectomy ?Z98.52 - Vasectomy status (ICD-10) History of total left hip arthroplasty ?Z96.642 - Presence of left artificial hip joint (ICD-10) 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: , 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, 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 What is your 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 living situation?: I presently have a place to live Problems where you live: no known problems In the past 12 months, utilities in danger of being shut off: no In past 12 months, lack of transportation kept you from medical appts, meetings, work, or getting things needed for daily living: no In the past 12 mos, have been you worried that your food would run out before you had money to buy more?: never true In the past 12 mos, the food you bought just didn't last and you didn't have money to buy more?: never true Smoking Status: Never smoker How often do you have a drink containing alcohol: 2-4 times a month AUDIT-C Alcohol total score: 2 Non-prescribed substance use: denies use How often does anyone, including family, friends and others, physically hurt you: never How often does anyone, including family, friends and others, insult or talk down to you: never How often does anyone, including family, friends and others, threaten you with harm: never How often does anyone, including family, friends and others, scream or curse at you: never Meds Home Medications and Allergies Home Medications ?Medication ?Instructions ?Recorded ?Confirmed ?Type allopurinol 300 mg tablet 300 mg PO QDAY #90 tabs 07/16/25 08/03/25 Rx colchicine 0.6 mg capsule 0.6 mg PO BID #180 caps 07/16/25 08/03/25 Rx probenecid 500 mg tablet 500 mg PO BID #180 tabs 07/16/25 08/03/25 Rx prednisone 10 mg tablet 10 mg PO QDAY #30 tabs 07/31/25 08/03/25 Rx Allergies Allergy/AdvReac Type Severity Reaction Status Date / Time oxycodone AdvReac chilled, Verified 08/03/25 08:35 vomiting Exam Const: Vital Signs, click to edit/add: Vital Signs - 24 hr 08/03/25 08:37 Temperature 97.5 F L Pulse Rate [Pulse Oximeter] 58 L Respiratory Rate 14 Blood Pressure [Ri ght Upper Arm] 135/87 Pulse Oximetry 98 Oxygen Delivery Me thod Room Air Hospitalist - H&P: Result Labs Labs: Short CBC 08/03/25 Range/Units 09:12 WBC 16.65 H (4.50-11.00) K/uL Hgb 13.3 L (13.5-17.5) gm/dL Hct 40.3 (37.0-53.0) % Plt Count 242 (140-440) K/uL BMP 08/03/25 09:12 Sodium 140 Potassium 4.8 Chloride 103 Carbon Dioxide 28 BUN 16 Creatinine 0.8 Glucose 118 H Calcium 9.6 Liver Function 08/03/25 Range/Units 09:12 Total Bilirubin 1.0 (0.1-1.5) mg/dL AST 22 (12-35) U/L ALT 35 (4-50) U/L Alkaline Phosphatase 94 (40-150) U/L Albumin 4.1 (3.3-5.0) g/dL
[2025-08-03] MEDS: VANCOMYCIN 1.75 GM/350 ML 1.75 GM/350 ML PIGGYBACK IVPB (11:54)
[2025-08-03] MEDS: LACTATED RINGERS 1000 ML 1,000 ML 125 ML IV ×2 (12:07→13:17)
[2025-08-03] MEDS: LIDOCAINE 1% MDV 20 ML INJECTION (12:41)
[2025-08-03] MEDS: BUPIVACAINE 0.25% 30 ML INJECTION (12:41)
--- NOTE | 2025-08-03 13:07 | PM.ORCN ---
History of Present Illness HPI Date Seen: 08/03/25 Consult date: 08/03/25 Chief complaint: wound on left foot Narrative: Deondre is a pleasant 55-year-old male. 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 This pass typically been chalked up to gout. However, in the last 4-6 weeks his pain is increased although more. He was treated with NSAIDs initially. Most recently even prednisone by mouth. He then acknowledge in the last 2-4 days the swelling of the joint is increased, the discomfort worsened, and now the last 24 hours the medial MTP joint of the left great toe has opened up and is draining purulent material. He presented [place] ED today. A CT scan was obtained and Orthopedics was consulted to consider surgical debridement given the appearance of infection plus or minus gout underlying this. He is a very tough/stoic individual. He is wondering when he can get back to work. 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 living 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?: I 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 have a place to live Problems where you live: no known problems In the past 12 months, utilities in danger of being shut off: no In past 12 months, lack of transportation kept you from medical appts, meetings, work, or getting things needed for daily living: no In the past 12 mos, have been you worried that your food would run out before you had money to buy more?: never true In the past 12 mos, the food you bought just didn't last and you didn't have money to buy more?: never true Smoking Status: Never smoker How often do you have a drink containing alcohol: 2-4 times a month AUDIT-C Alcohol total score: 2 Non-prescribed substance use: denies use How often does anyone, including family, friends and others, physically hurt you: never How often does anyone, including family, friends and others, insult or talk down to you: never How often does anyone, including family, friends and others, threaten you with harm: never How often does anyone, including family, friends and others, scream or curse at you: never Meds Home Medications and Allergies Home Medications ?Medication ?Instructions ?Recorded ?Confirmed ?Type allopurinol 300 mg tablet 300 mg PO QDAY #90 tabs 07/16/25 08/03/25 Rx colchicine 0.6 mg capsule 0.6 mg PO BID #180 caps 07/16/25 08/03/25 Rx probenecid 500 mg tablet 500 mg PO BID #180 tabs 07/16/25 08/03/25 Rx prednisone 10 mg tablet 10 mg PO QDAY #30 tabs 07/31/25 08/03/25 Rx Allergies Allergy/AdvReac Type Severity Reaction Status Date / Time oxycodone AdvReac chilled, Verified 08/03/25 08:35 vomiting Ortho Exam Narrative Exam Narrative: He is alert and orient x3. Lying supine in hospital bed in the emergency department comfortably. No acute distress. Left foot exam shows an obvious ulceration that measures nearly 2 cm in diameter. There is a secondary 5-7 mm ulceration with a 1 cm skin bridge between them. There does appear to be active purulence draining from the wound. No obvious gouty tophi evident. Painful/tender to palpation throughout the great toe MTP joint region. Erythema does migrate up the foot to the ankle level. A demarcation is seen with a purple marker drawn by another individual. He is able to actively flex and extend his great toe at this time. Digit tip is pink, warm, brisk cap refill. Const Vital Signs, click to edit/add: Vital Signs - 24 hr 08/03/25 08:37 08/03/25 10:02 08/03/25 10:32 Temperature 97.5 F L Pulse Rate 63 65 Pulse Rate [Pulse Oximeter] 58 L Respiratory Rate 14 18 16 Blood Pressure 134/93 H 143/104 H Blood Pressure [Right Upper Arm] 135/87 Pulse Oximetry 98 96 96 Oxygen Delivery Method Room Air 08/03/25 11:02 08/03/25 11:33 Temperature Pulse Rate 65 65 Pulse Rate [Pulse Oximeter] Respiratory Rate 18 14 Blood Pressure 138/94 H 141/100 H Blood Pressure [Right Upper Arm] Pulse Oximetry 96 97 Oxygen Delivery Method Results Labs Labs: Laboratory Results - last 48 hr 08/03/25 09:12 WBC 16.65 H RBC 4.42 Hgb 13.3 L Hct 40.3 MCV 91 MCH 30 MCHC 33 RDW Coeff of Eufemia 12.9 Plt Count 242 Neut % (Auto) 79.6 H Lymph % (Auto) 11.2 L Bartholomew % (Auto) 7.9 Eos % (Auto) 0.2 Baso % (Auto) 0.1 Neut # (Auto) 13.30 H Lymph # (Auto) 1.90 Bartholomew # (Auto) 1.30 H Eos # (Auto) 0.00 Baso # (Auto) 0.00 Abs Immat Gran (auto) 0.20 Imm/Tot Granulo (auto) 1.0 ESR 79 H Sodium 140 Potassium 4.8 Chloride 103 Carbon Dioxide 28 Anion Gap 9 BUN 16 Creatinine 0.8 Estimated Creat Clear 98.69 Estimated GFR 105 Glucose 118 H Uric Acid 3.8 Calcium 9.6 Total Bilirubin 1.0 AST 22 ALT 35 Alkaline Phosphatase 94 C-Reactive Protein 17.6 H Total Protein 7.7 Albumin 4.1 Procalcitonin 1.30 H Diagnostic results Additional Comments: White blood cell count 16.65. ESR 79 CRP 17.6 Uric acid 3.8. Total protein 7.[address] scan of the left foot from [facility] dated 08/03/2025 was ordered by different provider and reviewed by me. This shows significant great toe arthritic change including erosions of the great toe proximal phalanx base and 1st metatarsal head with surrounding small calcifications seen around the MTP joint in general. Soft tissue wound involving the medial forefoot. The infiltration of the underlying soft tissues may relate to cellulitis versus changes of the patient's gouty arthropathy. Assessment and Plan Assessment and plan (1) Joint abscess: Problem comment: infected tophi? joint abscess? staph likely on gram stain. to the OR for I/D and joint exam await findings from the OR for the rest of the care plan Status: Acute Total time spent: Total time spent is greater than 50% in coordination of care (as documented) at patient's floor/unit and/or counseling patient: (2) Gout: Problem comment: Left 1st MTP, right 2nd and 5th DTPs, right elbow tophi present uric acid normal no crystal examine previously; CPPD? allopurinol, colchine, probenecid from PCP Status: Acute Total time spent: Total time spent is greater than 50% in coordination of care (as documented) at patient's floor/unit and/or counseling patient: Plan This left great toe MTP joint does appear to have septic arthritis at this time with associated abscess adjacent to the joint medially. This is possibly with the over arching history of gout. Reportedly he has no confirmed gout crystal identification in the past. No matter, with the current ulceration of this skin along the and medial MTP joint I do think surgery is indicated. This would be for incision and drainage with excisional debridement of tissue around this left foot/great toe MTP joint region. I discussed the risks and benefits with the patient and his . This includes local risks (e.g. Infection, wound healing issues, persistent infection, need for future surgeries) as well as systemic risks (e.g. VTE, IL, stroke). I do think surgery is important to proceed with properly. The patient has been NPO since last night. This is helpful. I have coordinated care with the hospitalist team and the emergency room physician as well as anesthesia team. Following today's procedure, I would anticipate the patient would benefit from hospitalization with IV antibiotics until cultures return were oral antibiotics could be utilized. It is possible he may benefit from repeat debridement and or wound center referral. Our podiatry colleagues may have more insight and I do into the ongoing care for this patient.
--- NOTE | 2025-08-03 13:18 | P.ORPRC_ITS ---
Procedure Note Date of procedure: 08/03/25 Procedure: PREOPERATIVE DIAGNOSIS: 1. Left great toe MTP joint septic arthritis 2. Left great toe abscess, deep, adjacent to the MTP joint 3. Left great toe gout POSTOPERATIVE DIAGNOSIS: 1. Left great toe MTP joint septic arthritis 2. Left great toe abscess, deep, adjacent to the MTP joint 3. Left great toe gout PROCEDURE: 1. Left great toe surgical drainage of deep abscess including irrigation of the joint itself. 2. Left great toe excisional debridement including to the depth of bone SURGEON: Power Cardenas MD. BINDER ROLLER: Julissa Ballard PA-C - Of note, an marketing administrative assistant was critical for this case to aid in patient positioning, tissue retraction, limb manipulation/positioning, patient safety, & closure. ANESTHESIA: General endotracheal anesthetic plus local anesthetic (1% lidocaine plain plus 0.5% Marcaine plain, 50:50 mixture) EBL: 25 mL IMPLANTS: None SPECIMENS: Culture obtained intraoperatively; also liquid specimen was aspirated with a syringe without a needle and sent for crystals TOURNIQUET: 18 minutes at 230 torr COMPLICATIONS: None evident INDICATIONS: The patient is a pleasant 55-year-old male who has experienced left great toe swelling, pain, and dysfunction over the last couple months with a flare here in the last few days. He spontaneously developed an ulceration on the medial aspect of left great toe MTP joint region. He does have a history of gout, but this appears to have an infection superseding in the gout. Nonoperative management has been tried but unsuccessful. Given the failure of nonoperative management, and how this affects daily life, surgery was recommended. DESCRIPTION OF PROCEDURE: Following a thorough discussion of risks, benefits, and alternatives consent was obtained and the operative extremity was marked. The patient was brought to the operating room and placed supine on the operating table. No antibiotics were administered as the patient had both vancomycin and Zosyn preoperative in the emergency department. Proper time-out was performed identifying proper patient, site, and procedure. The operative extremity was prepped and draped in the appropriate sterile fashion using ChloraPrep. The limb was exsanguinated and the tourniquet inflated. The ulceration on medial aspect of the great toe MTP joint region measured approximately 2 cm in diameter. There is a secondary ulceration that was approximately 5-7 mm in diameter with a 1 cm skin bridge between them. This main ulceration was debrided sharply with 15 blade scalpel, rongeur, and curette. Indeed tissue debridement including skin, subcutaneous tissue, fascia, and the depth including bone. A curette allowed us to debride the dorsal and plantar aspect adjacent to the MTP joint. Multiple encounters of white chalky for material were encountered that looks consistent with gout. This seem to have some mix with purulent type of material which may have expressed infection and gout simultaneously. Thorough debridement was performed and thorough irrigation with normal saline was performed. At this stage, the tourniquet was deflated and hemostasis achieved. Closure was not completed fully. The skin was reapproximated with 3- 0 nylon in interrupted fashion where the skin quality was good. However at the primary ulceration where the secondary ulceration was adjacent, this skin would not tolerate closure. Therefore, this part was left open. It was packed with iodoform gauze. Dressing was then applied including Clayton wrap. A hard-soled postop shoe was also applied. The patient was awoken from anesthesia and transferred to the recovery room in stable condition. PLAN: 1. Encourage elevation of the operative extremity. 2. Range of motion of the operative extremity/digits as tolerated. 3. Ibuprofen, acetaminophen and/or hydrocodone as needed for pain. 4. Weight bear as tolerated operative extremity with crutch or cane ambulation assistance 5. IV antibiotics while here in the hospital until cultures return and oral antibiotics can be selected. 6. Anticipate benefit from wound center referral for ongoing wound care. 7. Consider consultation with podiatry for ongoing management of patient's significant left great toe pathology (arthritis, gout, superimposed septic arthritis, etc).
--- NOTE | 2025-08-03 13:36 | P.ANES_ITS ---
Anesthesia Charges Start Date/Time Anesthesia Start Date: 08/03/25 Anesthesia Start Time: 12:06 Stop Date/Time Anesthesia Stop Date: 08/03/25 Anesthesia Stop Time: 13:20 Summary Emergency: HOT MILL TIN ROLLER Coding CPT Codes CPT Codes: ANESTH LOWER LEG SURGERY - 12081 ([id number]) P2 - PATIENT W/MILD SYST DISEASE, QZ - HOT MILL TIN ROLLER SVC W/O WILLOW MACHINE TENDER BY Additional Codes: Summary - Emergency: H[employer] M[employer]IN ROLLER ([id number])
--- NOTE | 2025-08-03 13:36 | W.ANESCHARGE ---
Anesthesia Charges Start Date/Time Anesthesia Start Date: 08/03/25 Anesthesia Start Time: 12:06 Stop Date/Time Anesthesia Stop Date: 08/03/25 Anesthesia Stop Time: 13:20 Summary Emergency: EDUCATIONAL PROGRAM ASSISTANT Coding CPT Codes CPT Codes: ANESTH LOWER LEG SURGERY - 89513 ([id number]) P2 - PATIENT W/MILD SYST DISEASE, QZ - EDUCATIONAL PROGRAM ASSISTANT SVC W/O FUNDING ANALYST BY Additional Codes: Summary - Emergency: EDUCATIONAL PROGRAM ASSISTANT ([id number])
[2025-08-03] MEDS: ACETAMINOPHEN 325 MG TABLET 1000 MG PO (17:57)
[2025-08-03] MEDS: VANCOMYCIN 1.25 GM/250 ML 1.25 GM/250 ML PIGGYBACK IVPB (23:22)
[2025-08-04] VITALS (7 sets, daily range): BP systolic 117–178; BP diastolic 86–110; PULSE 45–61; RESP 16–20; TEMP 36.1–37.2; O2SAT 97
[2025-08-04] MEDS: PIPERACILLIN/TAZOBACTAM 3.375 GM in 0.9 % SODIUM CHLORIDE Mini-bag 100 ML IVPB ×4 (03:48→21:43)
--- NOTE | 2025-08-04 05:22 | PC.NURSE ---
Pt alert and oriented. Pt rates pain at a five see EMAR for intervention. Pt up WBAT. Pt's VSS.
[2025-08-04 06:32] LABS: Hematocrit* 36.5 % (37.0-53.0); Hemoglobin* 11.9 gm/dL (13.5-17.5); Immature Granulocytes Pct Auto 0.7 %; Mean Corpuscular HGB Conc 33 gm/dL (32-36); Mean Corpuscular Hemoglobin 30 pg (26-34); Mean Corpuscular Volume 91 fL (80-100); RDW Coefficient of Variation % 12.8 % (11.5-15.5); Red Blood Count* 4.00 m/uL (4.30-5.90); White Blood Count* 12.53 K/uL (4.50-11.00)
[2025-08-04 06:52] LABS: Albumin* 3.6 g/dL (3.3-5.0); Chloride* 109 mmol/L (96-114); Immature Granulocytes Abs Auto 0.10 K/uL (0.00-0.30); Lymphocytes Absolute Auto 1.60 K/uL (0.90-2.90); Potassium* 4.1 mmol/L (3.6-5.1); Slide Review Reflex No; Sodium* 139 mmol/L (135-149)
[2025-08-04 06:55] LABS: Alanine Aminotransferase* 29 U/L (4-50); Alkaline Phosphatase* 76 U/L (40-150); Anion Gap 7 mEq/L (7-15); Aspartate Amino Transferase* 18 U/L (12-35); Bilirubin Total* 0.7 mg/dL (0.1-1.5); Blood Urea Nitrogen* 16 mg/dL (7-30); Carbon Dioxide* 23 mmol/L (20-32); Creatinine* 0.9 mg/dL (0.5-1.5); Est. Creatinine Clearance* 87.73; Estimated Glomerular Filt Rate 101 ml/min; Total Protein* 6.8 g/dL (6.0-8.3)
[2025-08-04 06:56] LABS: Calcium* 9.2 mg/dL (8.4-10.6); Glucose* 137 mg/dL (60-115)
[2025-08-04] MEDS: ACETAMINOPHEN 325 MG TABLET 1000 MG PO (07:48)
[2025-08-04] MEDS: TRAMADOL HCL 50 MG TABLET 100 MG PO ×2 (07:48→15:12)
--- NOTE | 2025-08-04 09:15 | REH.PT ---
PT Eval & treat order received, Chart reviewed. Pt seen this am. He has been mobilizing in room ind without an AD. Educated on use of SEC with gait to offload L foot while wearing sx shoe. Pt reports a decrease in pain from 6/10 to 3/10 when using SEC with gait vs no device. Demo's ind gait and transfers. Encouraged to elevate foot above his heart when resting. Feels comfortable with stair amb leading with non-sx LE up and sx-LE down. Goals met in PT. No Charge.
--- NOTE | 2025-08-04 11:16 | PM.IMPN1 ---
Assessment and Plan Assessment and plan (1) Joint abscess: Problem comment: Left MTP - washout 08/03. Tophi debrided. staph likely on gram stain. +monosodium urate crystals in Left MTP as expected MR for osteomyelitis determination outpatient podiatry and/or wound care clinic Status: Acute (2) Chronic tophaceous gout of left foot: Problem comment: Left 1st MTP, right 2nd and 5th DTPs, right elbow tophi present - monosodium urate crystals on joint aspiration. uric acid lowered from 6.9 --> 3.8. Goal is less than six. will keep probenecid on hold. continue Allopurinol @ 300mg BID. colchine is effective in the first few weeks of uricosuric initation and then used only in acute flares. I will hold prednisone after 08/05 dose; as chronic prednisone is not indicated. Status: Acute (3) Elevated blood pressure reading without diagnosis of hypertension: Problem comment: -outpatient readings 128-144, normal diastolic. will continue to monitor and treat prn with metoprolol. Status: Acute Subjective Date Seen: 08/04/25 Interval history: Daily Progress Note - Hospital Medicine Day #: 2 Post-Op Day#1 PROCEDURE: 1. Left great toe surgical drainage of deep abscess including irrigation of the joint itself. 2. Left great toe excisional debridement including to the depth of bone CC: abscess and gout in the left foot; post op I/D 24 HOUR UPDATE: Afebrile; pain management with Tylenol, oral dilaudid on Vanc and Zosyn on prednisone taper 50->10mg since 06/15/25 Notable Labs, Micro, Rads, Interventions: Afebrile Hypertensive, ranging from 144-178 systolic over 87-110 diastolic Pulse 61 Respiratory rate 18 Pulse oximetry 97% room air 87.5 kilos White blood cell count decreased 16.6 down to 12 5, hemoglobin dropped 13.3 down to 11 9. Platelets 228 Electrolytes are normal, renal function is normal. Mildly hyperglycemic secondary to chronic prednisone therapy blood sugars are 118 and 137 CRP is down trending 17.6 down to 9.[address] reviewed on admission Abscess swab from the ER: gram stain showed moderate Gram-positive cocci in clusters. Culture is pending Crystal analysis from the left foot synovial fluid does show monosodium urate crystals. Consistent with known history of gout Cultures and Gram stain from surgery: gram stain shows again the moderate Gram-positive cocci in clusters and now in pairs. Again cultures are pending. Blood culture x2 is negative to date Objective: alert, well-appearing. Asking appropriate questions Vitals: see above Lungs: Clear. Cardiac: S1S2. MSK: sweling is much improved. erythema receeding. wound is dry. wick removed. Disposition/Potential discharge - pending wound cultures and osteomyelitis determination. Today I spent 50 minutes seeing the patient, reviewing Expanse and EPIC notes/diagnostics, discussing the care plan with our care time that includes social work, PT/OT, pharmacy, RT, detention and documenting my impressions and plan in the medical record. Exam Const: Vital Signs, click to edit/add: Vital Signs - 24 hr 08/03/25 11:33 08/03/25 13:20 08/03/25 13:25 Temperature 97.4 F L Pulse Rate 65 69 70 Pulse Rate [Pulse Oximeter] Respiratory Rate 14 16 16 Blood Pressure 141/100 H 145/97 H 154/106 H Blood Pressure [Le ft Arm] Pulse Oximetry 97 96 95 Oxygen Delivery Me thod Room Air 08/03/25 13:30 08/03/25 13:35 08/03/25 13:40 Temperature Pulse Rate 64 64 61 Pulse Rate [Pulse Oximeter] Respiratory Rate 16 16 16 Blood Pressure 145/102 H 150/97 H 151/99 H Blood Pressure [Le ft Arm] Pulse Oximetry 95 97 96 Oxygen Delivery Me thod 08/03/25 13:45 08/03/25 13:50 08/03/25 14:00 Temperature 98.1 F 97.5 F L Pulse Rate 62 60 57 L Pulse Rate [Pulse Oximeter] Respiratory Rate 16 16 16 Blood Pressure 154/96 H 154/99 H 169/112 H Blood Pressure [Le ft Arm] Pulse Oximetry 94 96 97 Oxygen Delivery Me thod Room Air Room Air 08/03/25 14:15 08/03/25 14:30 08/03/25 14:45 Temperature 97.6 F 97.8 F 97.8 F Pulse Rate 57 L 61 Pulse Rate [Pulse Oximeter] Respiratory Rate 16 16 16 Blood Pressure 167/103 H 165/101 H Blood Pressure [Le ft Arm] 152/120 H Pulse Oximetry 97 97 96 Oxygen Delivery Me thod Room Air Room Air Room Air 08/03/25 15:00 08/03/25 15:00 08/03/25 15:00 Temperature Pulse Rate Pulse Rate [Pulse Oximeter] Respiratory Rate 18 18 18 Blood Pressure Blood Pressure [Le ft Arm] 150/104 H Pulse Oximetry 96 96 Oxygen Delivery Me thod Room Air Room Air 08/03/25 15:30 08/03/25 16:00 08/03/25 17:44 Temperature 98 F Pulse Rate Pulse Rate [Pulse Oximeter] Respiratory Rate 18 18 18 Blood Pressure Blood Pressure [Le ft Arm] 166/107 H 156/105 H 156/120 H Pulse Oximetry 97 96 95 Oxygen Delivery Me thod Room Air Room Air Room Air 08/03/25 19:00 08/03/25 23:20 08/03/25 23:20 Temperature 98 F Pulse Rate Pulse Rate [Pulse Oximeter] 64 Respiratory Rate 18 18 Blood Pressure Blood Pressure [Le ft Arm] 141/87 H Pulse Oximetry 94 [address] 08/03/25 23:32 08/04/25 03:50 08/04/25 07:00 Temperature 98.0 F 97.3 F L 98.2 F Pulse Rate Pulse Rate [Pulse Oximeter] 64 55 L 61 Respiratory Rate 18 20 18 Blood Pressure Blood Pressure [Le ft Arm] 150/97 H 144/102 H 178/110 H Pulse Oximetry 96 97 97 Oxygen Delivery Me thod Room Air Room Air Room Air 08/04/25 07:00 08/04/25 07:00 Temperature Pulse Rate Pulse Rate [Pulse Oximeter] 61 Respiratory Rate 18 18 Blood Pressure Blood Pressure [Le ft Arm] Pulse Oximetry [address] [facility] Labs Labs: Laboratory Results - last 24 hr 08/04/25 05:58 WBC 12.53 H RBC 4.00 L Hgb 11.9 L Hct 36.5 L MCV 91 MCH 30 MCHC 33 RDW Coeff of Eufemia 12.8 Plt Count 228 Neut % (Auto) 80.3 H Lymph % (Auto) 12.9 L [place] % (Auto) 6.0 Eos % (Auto) 0.0 Baso % (Auto) 0.1 Neut # (Auto) 10.10 H Lymph # (Auto) 1.60 [place] # (Auto) 0.80 Eos # (Auto) 0.00 Baso # (Auto) 0.00 Abs Immat Gran (auto) 0.10 Imm/Tot Granulo (auto) 0.7 Sodium 139 Potassium 4.1 Chloride 109 Carbon Dioxide 23 Anion Gap 7 BUN 16 Creatinine 0.9 Estimated Creat Clear 87.73 Estimated GFR 101 Glucose 137 H Calcium 9.2 Total Bilirubin 0.7 AST 18 ALT 29 Alkaline Phosphatase 76 C-Reactive Protein 9.0 H Total Protein 6.8 Albumin 3.6
[2025-08-04] MEDS: VANCOMYCIN 1.25 GM/250 ML 1.25 GM/250 ML PIGGYBACK IVPB ×2 (11:51→23:56)
[2025-08-04] MEDS: CARBOXYMETHYLCELLULOSE (REFRESH PLUS) TEARS 1 DROP EYE-BOTH (12:20)
[2025-08-04] MEDS: METOPROLOL TARTRATE 25 MG TABLET PO ×2 (12:20→20:36)
--- NOTE | 2025-08-04 12:51 | CRLHL7_ITS ---
For Patients: As a result of the Century Cures Act, medical imaging exams and procedure reports are released immediately into your electronic medical record. You may view this report before your referring provider. If you have questions, please contact your health care provider. Indication: Tophus, gout, abscess. Debridement surgery today Technique: Multiplanar multisequence images through the left foot were acquired before and after the administration 18 milliliters Dotarem intravenous contrast. Comparison: CT left foot with contrast 08/03/2025, left foot radiographs 06/15/2025 Findings: There is soft tissue irregularity along the medial aspect of the great toe at the level of the MTP joint. There is a subcutaneous fluid collection in this region measuring approximately 2.2 x 0.6 x 1.3 centimeters (series 4, image 22 and series 8, image 3). An additional elongated fluid collection along the medial aspect of the forefoot with peripheral enhancement measures approximately 1.2 x 0.4 x 5.2 centimeters, with the proximal extent of the fluid collection not included within the exam field of view (series 4, image 31 and series 5, image 14). Additional subcutaneous edema is present. There is patchy, non masslike contrast enhancement of the soft tissues along the medial aspect of the forefoot. There are osseous changes related to known gouty arthropathy with well-defined cortical erosion centered about the great toe MTP joint. A small 1st MTP joint effusion is present. 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 There is no acute fracture. There are no marrow changes suggestive of osteomyelitis. Imaged tendons are intact. Plantar muscle bulk is preserved. Impression: 1. Marrow changes related to gouty arthropathy at the great toe MTP joint with multiple well-defined cortical erosions. No marrow replacement to suggest osteomyelitis. 2. Soft tissue irregularity along the medial aspect of the great toe at the level of the 1st MTP joint may correspond to soft tissue wound and/or site of reported surgical debridement completed today. There is a small fluid collection in this region and an additional partially imaged elongated fluid collection along the medial aspect of the forefoot as above. Dictated by Leigh Ann Andre MD @ 08/04/2025 9:00:29 PM (Electronically Signed)
--- NOTE | 2025-08-04 13:48 | PC.SOCIAL ---
Discharge planning: Met with pt to clarify insurance situation as pt is listed on chart as private pay. PT and clarified pt is with [facility] Health Share program. Through this program, the pt submits itemized bills provided by the hospital for payment and the hospital does not submit any information directly to this program. Pt is not interested in any information on Medical assistance options as he is well covered by this healthshare program. No social work needs identified.
[2025-08-04] MEDS: ACETAMINOPHEN 500 MG TABLET 1000 MG PO (15:12)
[2025-08-04] MEDS: LACTOBACILLUS ACIDOPHILUS 1 TABLET 2 TAB PO (18:03)
--- NOTE | 2025-08-04 18:25 | PC.NURSE ---
End of shift report [id number]: Alert and oriented x 4. Pleasant and cooperative with cares. Pain to left foot and ankle consistently 6-7/10 this shift, patient reports that norco and oxycodone do not work for him. Tramadol and oral hydromorphone ordered, adjustments required throughout the day to dose and frequency to help relieve pain. Ice prn to site and elevate frequently throughout the day. Initial dressing change completed by ortho PA. T[employer]ical [employer] Control Party Manager changed dressing x 2 due to drainage. Moderate amount of bloody, purulent drainage from incision site. Periwound red, operative site open to allow for drainage. Ambulates and transfers independently, utilizes boot and cane for ambulation.
[2025-08-04] MEDS: SENNOSIDES 1 TAB TABLET 2 TAB PO (20:36)
[2025-08-04] MEDS: SODIUM CHLORIDE 0.9 % (FLUSH) 10 ML SYRINGE 5 ML IVF (23:55)
[2025-08-05] VITALS (24 sets, daily range): BP systolic 122–221; BP diastolic 88–126; PULSE 45–63; RESP 14–18; TEMP 36–37.2; O2SAT 93–98
[2025-08-05] MEDS: PIPERACILLIN/TAZOBACTAM 3.375 GM in 0.9 % SODIUM CHLORIDE Mini-bag 100 ML IVPB ×2 (03:49→09:46)
[2025-08-05 06:32] LABS: Albumin* 3.5 g/dL (3.3-5.0); Chloride* 108 mmol/L (96-114); Hematocrit* 35.4 % (37.0-53.0); Hemoglobin* 11.5 gm/dL (13.5-17.5); Immature Granulocytes Abs Auto 0.19 K/uL (0.00-0.30); Immature Granulocytes Pct Auto 2.0 %; Lymphocytes Absolute Auto 3.45 K/uL (0.90-2.90); Mean Corpuscular HGB Conc 33 gm/dL (32-36); Mean Corpuscular Hemoglobin 30 pg (26-34); Mean Corpuscular Volume 93 fL (80-100); Potassium* 4.4 mmol/L (3.6-5.1); RDW Coefficient of Variation % 13.0 % (11.5-15.5); Red Blood Count* 3.80 m/uL (4.30-5.90); Sodium* 139 mmol/L (135-149); White Blood Count* 9.42 K/uL (4.50-11.00)
[2025-08-05 06:33] LABS: Slide Review Reflex No
[2025-08-05 06:34] LABS: Alanine Aminotransferase* 28 U/L (4-50); Aspartate Amino Transferase* 21 U/L (12-35); Blood Urea Nitrogen* 16 mg/dL (7-30); Creatinine* 0.9 mg/dL (0.5-1.5); Est. Creatinine Clearance* 87.73; Estimated Glomerular Filt Rate 101 ml/min
[2025-08-05 06:35] LABS: Alkaline Phosphatase* 68 U/L (40-150); Anion Gap 8 mEq/L (7-15); Bilirubin Total* 0.7 mg/dL (0.1-1.5); Calcium* 8.9 mg/dL (8.4-10.6); Carbon Dioxide* 23 mmol/L (20-32); Glucose* 81 mg/dL (60-115); Total Protein* 6.3 g/dL (6.0-8.3)
--- NOTE | 2025-08-05 06:48 | PC.NURSE ---
Pt alert and oriented. Pt independent in room. Pt WBAT. Pt?s dressing is dry and intact. Pt?s ankle is red but within the previous drawn lines. Pt pleasant and cooperative. Pt?s pain ranged between 4-8; see EMAR for intervention.?
--- NOTE | 2025-08-05 07:00 | PM.ORPN ---
Subjective Subjective Time Seen by Provider: 12:15 Date Seen: 08/04/25 Principal diagnosis: Status post surgical drainage of deep abscess left great toe Interval history: Deondre felt somewhat better today, Monday. MRI shows no osteomyelitis today. He is on IV antibiotics. Ortho Exam Narrative Exam Narrative: Alert and oriented x3. Patient is in no acute distress. Converses without labored breathing. Hearing is grossly intact. Ambulates with a postop shoe Examination of the left foot shows no active drainage. The wick is removed. Erythema about the foot. He is able to flex and extend his great toe slightly. Sensation is intact to light touch. Capillary refill less than 2 seconds. Const Vital Signs, click to edit/add: Vital Signs - 24 hr 08/04/25 11:00 08/04/25 15:00 08/04/25 15:00 Temperature 98.3 F Pulse Rate [Pulse Oximeter] 61 61 Respiratory Rate 16 16 16 Blood Pressure [Left Arm] 155/104 H Pulse Oximetry 97 97 Oxygen Delivery Method Room Air Room Air 08/04/25 15:00 08/04/25 20:28 08/04/25 20:30 Temperature 97.7 F 98.9 F Pulse Rate [Pulse Oximeter] 60 51 L 52 L Respiratory Rate 18 16 Blood Pressure [Left Arm] 153/94 H 158/102 H Pulse Oximetry 97 97 Oxygen Delivery Method Room Air Room Air 08/04/25 23:53 08/05/25 00:03 08/05/25 03:47 Temperature 97.0 F L 97.7 F Pulse Rate [Pulse Oximeter] 45 L 51 L Respiratory Rate 18 18 18 Blood Pressure [Left Arm] 117/86 122/88 Pulse Oximetry 97 97 93 Oxygen Delivery Method Room Air Room Air Assessment and Plan Assessment and plan (1) Joint abscess: Problem details: Left MTP - washout 08/03. Tophi debrided. staph likely on gram stain. +monosodium urate crystals in Left MTP as expected MR for osteomyelitis determination outpatient podiatry and/or wound care clinic Status: Acute (2) Chronic tophaceous gout of left foot: Problem details: Left 1st MTP, right 2nd and 5th DTPs, right elbow tophi present - monosodium urate crystals on joint aspiration. uric acid lowered from 6.9 --> 3.8. Goal is less than six. will keep probenecid on hold. continue Allopurinol @ 300mg BID. colchine is effective in the first few weeks of uricosuric initation and then used only in acute flares. I will hold prednisone after 08/05 dose; as chronic prednisone is not indicated. Status: Acute Plan Dressing is removed. Wick is removed. 4 x 4 gauze and Mepilex is applied to the left foot. He can shower. He can ambulate and weight bear as tolerated. Change dressing if it becomes compromised. Continue IV antibiotics. Monosodium urate crystals noted in crystal analysis confirming gout. Blood cultures continue with no growth. G positive cocci left foot. Awaiting culture results.
--- NOTE | 2025-08-05 08:00 | PC.NURSE ---
Notified MD that heart rate was in the 40s and BP elevated. MD will adjust medications.
[2025-08-05] MEDS: ACETAMINOPHEN 500 MG TABLET 1000 MG PO ×2 (08:49→14:47)
[2025-08-05] MEDS: LACTOBACILLUS ACIDOPHILUS 1 TABLET 2 TAB PO (08:49)
[2025-08-05] MEDS: AMLODIPINE 5 MG TABLET PO (09:46)
--- NOTE | 2025-08-05 10:36 | PM.ORPN ---
Subjective Subjective Time Seen by Provider: 07:20 Date Seen: 08/05/25 Principal diagnosis: Status post surgical drainage of deep abscess left great toe Interval history: Kuldeep dressing is saturated and purulence is dripping down the foot. He states that when his symptoms began they were initially in the medial ankle with redness, tenderness in that area. He states the medial ankle area is more red today than it was yesterday. Ortho Exam Narrative Exam Narrative: Alert and oriented x3. Patient is in no acute distress. Converses without labored breathing. Hearing is grossly intact. Ambulates with a postop shoe. Examination of the left foot shows saturated dressing with purulence tripping/draining down the foot. Medial ankle more erythematous today with bogginess over the medial malleolus. Mildly tender in this area. Erythema about the lesser toes and lateral foot is improving, erythema is consolidating to the medial side of the foot and ankle. CMS intact left lower extremity. He is able to range his ankle without pain. He can range his lesser toes. Const Vital Signs, click to edit/add: Vital Signs - 24 hr 08/04/25 11:00 08/04/25 15:00 08/04/25 15:00 Temperature 98.3 F Pulse Rate [Left Dorsalis Pedis] Pulse Rate [Pulse Oximeter] 61 61 Respiratory Rate 16 16 16 Blood Pressure [Left Arm] 155/104 H Pulse Oximetry 97 97 Oxygen Delivery Method Room Air Room Air 08/04/25 15:00 08/04/25 20:28 08/04/25 20:30 Temperature 97.7 F 98.9 F Pulse Rate [Left Dorsalis Pedis] Pulse Rate [Pulse Oximeter] 60 51 L 52 L Respiratory Rate 18 16 Blood Pressure [Left Arm] 153/94 H 158/102 H Pulse Oximetry 97 97 Oxygen Delivery Method Room Air Room Air 08/04/25 23:53 08/05/25 00:03 08/05/25 03:47 Temperature 97.0 F L 97.7 F Pulse Rate [Left Dorsalis Pedis] Pulse Rate [Pulse Oximeter] 45 L 51 L Respiratory Rate 18 18 18 Blood Pressure [Left Arm] 117/86 122/88 Pulse Oximetry 97 97 93 Oxygen Delivery Method Room Air Room Air 08/05/25 08:09 Temperature 98.3 F Pulse Rate [Left Dorsalis Pedis] 45 L Pulse Rate [Pulse Oximeter] 47 L Respiratory Rate 16 Blood Pressure [Left Arm] 162/104 H Pulse Oximetry 96 Oxygen Delivery Method Room Air Assessment and Plan Assessment and plan (1) Joint abscess: Problem details: Left MTP - washout 08/03. Tophi debrided. staph likely on gram stain. +monosodium urate crystals in Left MTP as expected MR for osteomyelitis determination outpatient podiatry and/or wound care clinic Status: Acute (2) Chronic tophaceous gout of left foot: Problem details: Left 1st MTP, right 2nd and 5th DTPs, right elbow tophi present - monosodium urate crystals on joint aspiration. uric acid lowered from 6.9 --> 3.8. Goal is less than six. will keep probenecid on hold. continue Allopurinol @ 300mg BID. colchine is effective in the first few weeks of uricosuric initation and then used only in acute flares. I will hold prednisone after 08/05 dose; as chronic prednisone is not indicated. Status: Acute Assessment and Plan: MRI of the left foot performed yesterday 08/04/2025 shows 1. Marrow changes related to gouty arthropathy at the great toe MTP joint with multiple well-defined cortical erosions. No marrow replacement to suggest osteomyelitis. 2. Soft tissue irregularity along the medial aspect of the great toe at the level of the 1st MTP joint may correspond to soft tissue wound and/or site of reported surgical debridement completed today. There is a small fluid collection in this region and an additional partially imaged elongated fluid collection along the medial aspect of the forefoot as above. I asked Deondre to be NPO. I messaged Dr Mak this morning to see if he would be available to a washout Light foot and medial ankle today. He states he can do this later today. I have sent him a video and photos of the foot and ankle. The medial ankle and foot has certainly worsened since yesterday. The eythema over the lesser toes and lateral foot has improved. The left ankle joint is not septic for he can move it easily without pain. There is certainly a fluid collection, infection about the soft tissue of the medial ankle that I am able to push distally and milk it out of the wound. The foot is cleaned with Vashe and a new Mepilex dressing is placed with a 4 x [address] Mak will see Deondre later today around 5. Continue weightbearing as tolerated. Continue IV antibiotics. Note, dictation performed with voice recognition, and as a result, wrong word or sound like substitutions may have occurred. There may be areas in the script that have gone undetected. Please consider this when interpreting information found in the chart.
[2025-08-05] MEDS: VANCOMYCIN 1.25 GM/250 ML 1.25 GM/250 ML PIGGYBACK IVPB (11:47)
[2025-08-05] MEDS: TRAMADOL HCL 50 MG TABLET 100 MG PO (13:04)
--- NOTE | 2025-08-05 14:52 | PC.NURSE ---
End of shift: Patient pleasant and cooperative. Pain has been controlled with PO pain medications. NPO since 830. Has been up independently with a cane and pediatry shoe. Ice and elevation when in bed. PIV is patent and intact. Has NS running at 100ml/hr. Denies nausea. Has had some diarrhea. Held stool softeners, giving probiotic. Alert and oriented X3. BP meds changed this am. Tolerating well. Plan to go to the OR with Dr. Mak this evening. Continue on IV antibiotics for now.
--- NOTE | 2025-08-05 16:16 | PM.IMPN1 ---
Assessment and Plan Assessment and plan (1) Joint abscess: Problem comment: Left MTP - washout 08/03. Tophi debrided. +MSSA - switching to IV Ancef and d/c vanc and zosyn. +monosodium urate crystals in Left MTP as expected No osteo by MR 2nd washout planned for 08/05 wound care; podiatry and/or Rheum consult after discharge Status: Acute (2) Chronic tophaceous gout of left foot: Problem comment: Left 1st MTP, right 2nd and 5th DTPs, right elbow tophi present - monosodium urate crystals on joint aspiration. uric acid lowered from 6.9 --> 3.8. Goal is less than six. will keep probenecid on hold. continue Allopurinol @ 300mg BID. colchine is effective in the first few weeks of uricosuric initation and then used only in acute flares. I will hold prednisone after 08/05 dose; as chronic prednisone is not indicated. Status: Acute (3) Elevated blood pressure reading without diagnosis of hypertension: Problem comment: -outpatient readings 128-144, normal diastolic. will continue to monitor: amlodipine and lisinopril added to meds 08/05 Status: Acute Subjective Date Seen: 08/05/25 Interval history: Daily Progress Note - Hospital Medicine Day #: 3 Post-Op Day# 2 PROCEDURE: 1. Left great toe surgical drainage of deep abscess including irrigation of the joint itself. 2. Left great toe excisional debridement including to the depth of bone CC: abscess and gout in the left foot; post op I/D 24 HOUR UPDATE: Afebrile; pain management with Tylenol, oral dilaudid on Vanc and Zosyn on prednisone taper 50->10mg since 06/15/25 Notable Labs, Micro, Rads, Interventions: 161/102. Pulse 62. Resp is 18. Afebrile. 96% on room air. CBC reflects that his white blood cell count has returned to normal. His hemoglobin has gone from 13.3 down to 11.5. His platelet count is 266. His electrolytes look normal. His renal function is normal. CRP is down trending nicely. Foot MRI Impression: 1. Marrow changes related to gouty arthropathy at the great toe MTP joint with multiple well-defined cortical erosions. No marrow replacement to suggest osteomyelitis. 2. Soft tissue irregularity along the medial aspect of the great toe at the level of the 1st MTP joint may correspond to soft tissue wound and/or site of reported surgical debridement completed today. There is a small fluid collection in this region and an additional partially imaged elongated fluid collection along the medial aspect of the forefoot as above. Wound cultures from both the ER and from surgical I&D show MSSA. Staph aureus. Essentially pansensitive except for ciprofloxacin which is intermediate. No anaerobes. Positive monosodium crystals. Blood cultures remain negative. Objective: alert, well-appearing. Asking appropriate questions Vitals: see above Lungs: Clear. Cardiac: S1S2. MSK: swelling along the medial portion of his foot noted again, +draining. Disposition/Potential discharge - pending wound cultures and osteomyelitis determination. Today I spent 50 minutes seeing the patient, reviewing Expanse and EPIC notes/diagnostics, discussing the care plan with our care time that includes social work, PT/OT, pharmacy, RT, long term and documenting my impressions and plan in the medical record. Exam Const: Vital Signs, click to edit/add: Vital Signs - 24 hr 08/04/25 20:28 08/04/25 20:30 08/04/25 23:53 Temperature 98.9 F 97.0 F L Pulse Rate [Left D orsalis Pedis] Pulse Rate [Pulse Oximeter] 51 L 52 L 45 L Respiratory Rate 16 18 Blood Pressure [Le ft Arm] 158/102 H 117/86 Pulse Oximetry 97 97 Oxygen Delivery Me thod Room Air 08/05/25 00:03 08/05/25 03:47 08/05/25 08:09 Temperature 97.7 F 98.3 F Pulse Rate [Left D orsalis Pedis] 45 L Pulse Rate [Pulse Oximeter] 51 L 47 L Respiratory Rate 18 18 16 Blood Pressure [Le ft Arm] 122/88 162/104 H Pulse Oximetry 97 93 96 Oxygen Delivery Me thod Room Air Room Air Room Air 08/05/25 08:30 08/05/25 11:12 08/05/25 15:56 Temperature 97.9 F Pulse Rate [Left D orsalis Pedis] Pulse Rate [Pulse Oximeter] 62 Respiratory Rate 16 18 Blood Pressure [Le ft Arm] 146/96 H Pulse Oximetry 98 96 95 Oxygen Delivery Me thod Room Air Room Air Room Air 08/05/25 15:56 08/05/25 15:58 Temperature 97.0 F L Pulse Rate [Left D orsalis Pedis] Pulse Rate [Pulse Oximeter] 62 Respiratory Rate 18 18 Blood Pressure [Le ft Arm] 161/102 H Pulse Oximetry 96 Oxygen Delivery Me thod Room Air Labs Labs: Laboratory Results - last 24 hr 08/03/25 08/05/25 10:34 06:03 WBC 9.42 RBC 3.80 L Hgb 11.5 L Hct 35.4 L MCV 93 MCH 30 MCHC 33 RDW Coeff of Eufemia 13.0 Plt Count 226 Neut % (Auto) 51.5 Lymph % (Auto) 36.6 [place] % (Auto) 9.4 Eos % (Auto) 0.3 Baso % (Auto) 0.2 Neut # (Auto) 4.84 Lymph # (Auto) 3.45 H [place] # (Auto) 0.90 Eos # (Auto) 0.03 Baso # (Auto) 0.02 Abs Immat Gran (auto) 0.19 Imm/Tot Granulo (auto) 2.0 Sodium 139 Potassium 4.4 Chloride 108 Carbon Dioxide 23 Anion Gap 8 BUN 16 Creatinine 0.9 Estimated Creat Clear 87.73 Estimated GFR 101 Glucose 81 Uric Acid 3.6 Calcium 8.9 Total Bilirubin 0.7 AST 21 ALT 28 Alkaline Phosphatase 68 C-Reactive Protein 4.0 H Total Protein 6.3 Albumin 3.5 TSH 2.630 Fluid Crystal ID See Scanned Report
[2025-08-05] MEDS: CEFAZOLIN 2 GM in 0.9 % SODIUM CHLORIDE Mini-bag 100 ML IVPB (16:43)
[2025-08-05] MEDS: LACTATED RINGERS 1000 ML 1,000 ML 125 ML IV (17:31)
[2025-08-05] MEDS: BUPIVACAINE 0.25% 30 ML INJECTION (17:45)
--- NOTE | 2025-08-05 18:03 | PC.NURSE ---
End of shift: Pt has been very pleasant and cooperative. he is alert x4. left foot pain. Pain has been controlled with PO pain medications. he is NPO. IV has been patent. he got po BP meds. Has been up independently with a cane and pediatry shoe. Ice and elevation left foot .OR with Dr. Mak this evening. on IV antibiotics
--- NOTE | 2025-08-05 19:01 | P.PODCN_ITS ---
HPI - Podiatry Data of Consult Date Seen: 08/05/25 Consult date: 08/05/25 Requesting physician: Power Cardenas MD Primary care provider: Dylan Bustos MD Consult Narrative Reason for consult: Left foot infection with gout Narrative: Deondre Vega is a 55 year old male with history of chronic gout presented the ED with left foot infection caused by gouty tophi reacting to skin. He was taken to the operating room on 08/03/[address] Henley for an initial washout. He showed improvement postop day 1 but a MRI showed further fluid collections more proximal. There was new purulent drainage from proximal to distal out the open wound. cc:: CC: Power Cardenas MD Review of Systems Status of ROS: Reports: 10 or more systems reviewed and unremarkable except as noted in History and below [facility] Medical History (Updated 08/05/25 @ 16:25 by Daisy Wiley MD) Chronic tophaceous gout of left foot ?[id number].[id number] - Chronic gout, unspecified, with tophus (tophi) (ICD-10) Hyperlipidemia ?E78.5 - Hyperlipidemia, unspecified (ICD-10) Avascular necrosis of bones of both hips ?M87.051 - 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) ?M87.052 - Idiopathic aseptic necrosis of left femur (ICD-10) Surgical History History of vasectomy ?Z98.52 - Vasectomy status (ICD-10) History of total left hip arthroplasty ?Z96.642 - Presence of left artificial hip joint (ICD-10) 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: , 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, 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 What is your current living situation?: I presently have a place to live Problems where you live: no known problems In the past 12 months, utilities in danger of being shut off: no In past 12 months, lack of transportation kept you from medical appts, meetings, work, or getting things needed for daily living: no In the past 12 mos, have been you worried that your food would run out before you had money to buy more?: never true In the past 12 mos, the food you bought just didn't last and you didn't have money to buy more?: never true Smoking Status: Never smoker How often do you have a drink containing alcohol: 2-4 times a month AUDIT-C Alcohol total score: 2 Non-prescribed substance use: denies use How often does anyone, including family, friends and others, physically hurt you : never How often does anyone, including family, friends and others, insult or talk down to you: never How often does anyone, including family, friends and others, threaten you with harm: never How often does anyone, including family, friends and others, scream or curse at you: never Exam Narrative: Exam Narrative: General: No distress resting comfortably. Vascular: Palpable dorsalis pedis and posterior tibial pulses left. Normal capillary fill time. Neuro: Sensate to light touch throughout. Musculoskeletal: Normal muscle strength in all quadrants. No gross deformity. Pain with palpation to the medial ankle. Derm: There is erythema edema and fluctuance to the medial ankle just anterior to the medial malleolus and slightly proximal. Pressure on this area causes purulence to drain out the incision at the 1st MPJ. Erythema follow this course. There is new necrosis at the debridement site. There is tophi noted within the wound. MRI left foot: Findings: There is soft tissue irregularity along the medial aspect of the great toe at the level of the MTP joint. There is a subcutaneous fluid collection in this region measuring approximately 2.2 x 0.6 x 1.3 centimeters (series 4, image 22 and series 8, image 3). An additional elongated fluid collection along the medial aspect of the forefoot with peripheral enhancement measures approximately 1.2 x 0.4 x 5.2 centimeters, with the proximal extent of the fluid collection not included within the exam field of view (series 4, image 31 and series 5, image 14). Additional subcutaneous edema is present. There is patchy, non masslike contrast enhancement of the soft tissues along the medial aspect of the forefoot. There are osseous changes related to known gouty arthropathy with well-defined cortical erosion centered about the great toe MTP joint. A small 1st MTP joint effusion is present. 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 There is no acute fracture. There are no marrow changes suggestive of osteomyelitis. Imaged tendons are intact. Plantar muscle bulk is preserved. Impression: 1. Marrow changes related to gouty arthr opathy at the great toe MTP joint with multiple well-defined cortical erosions. No marrow replacement to suggest osteomyelitis. 2. Soft tissue irregularity along the me dial aspect of the great toe at the level of the 1st MTP joint may correspond to soft tissue wound and/or site of reported surgical debridement completed today. There is a small fluid collection in this region and an additional partially imaged elongated fluid collection along the medial aspect of the forefoot as above. Dictated by Leigh Ann Andre MD @ 08/04/2025 9:00:29 PM Wound culture: MSSA Labs: White count 9.4, C-reactive protein 4.0, ESR 79 Assessment: Left foot abscess with cellulitis, chronic tophaceous gout 1st MPJ, gouty arthritis 1st MPJ Plan: Unfortunately there is continued infection with new abscess formation proximal to the original surgical site. He is in need of return to the operating room for 2nd washout. I reviewed the procedure, recovery, expectations and potential complications with the patient. We discussed the necessity for evacuating the new infection to prevent potential loss of limb. We discussed that once infection has resolved we can review further treatment options for his gouty arthritis. Potential complications of the planned I and D include poor wound healing, continued infection, potential need for future surgery, limb loss, loss of life. He understands risks and written consent was obtained. Site was marked. He will be taken to surgery tonight. Const: Vital Signs, click to edit/add: Vital Signs - 24 hr 08/04/25 20:28 08/04/25 20:30 08/04/25 23:53 Temperature 98.9 F 97.0 F L Pulse Rate [Left D orsalis Pedis] Pulse Rate [Pulse Oximeter] 51 L 52 L 45 L Respiratory Rate 16 18 Blood Pressure [Le ft Arm] 158/102 H 117/86 Pulse Oximetry 97 97 Oxygen Delivery Me thod Room Air 08/05/25 00:03 08/05/25 03:47 08/05/25 08:09 Temperature 97.7 F 98.3 F Pulse Rate [Left D orsalis Pedis] 45 L Pulse Rate [Pulse Oximeter] 51 L 47 L Respiratory Rate 18 18 16 Blood Pressure [Le ft Arm] 122/88 162/104 H Pulse Oximetry 97 93 96 Oxygen Delivery Me thod Room Air Room Air Room Air 08/05/25 08:30 08/05/25 11:12 08/05/25 15:56 Temperature 97.9 F Pulse Rate [Left D orsalis Pedis] Pulse Rate [Pulse Oximeter] 62 Respiratory Rate 16 18 Blood Pressure [Le ft Arm] 146/96 H Pulse Oximetry 98 96 95 Oxygen Delivery Me thod Room Air Room Air Room Air 08/05/25 15:56 08/05/25 15:58 Temperature 97.0 F L Pulse Rate [Left D orsalis Pedis] Pulse Rate [Pulse Oximeter] 62 Respiratory Rate 18 18 Blood Pressure [Le ft Arm] 161/102 H Pulse Oximetry 96 Oxygen Delivery Me thod Room Air Documenting provider has reviewed patient's vital signs: yes Nail Debridement Qualifies If: Qualifiers If:: A patient qualifies for nail debridement if they have: 1 class A finding (Q7) 2 class B findings (Q8) OR 1 class B & 2 class C findings in addition to a primary condition (Q9)
--- NOTE | 2025-08-05 19:12 | W.PM.PODPROC ---
Date of Procedure: 08/05/25 Surgeon: Hima Mak DPM Pre-op Diagnosis: 1. Abscess with cellulitis left foot 2. Chronic tophaceous gout 1st MPJ Post-op Diagnosis: 1. Abscess with cellulitis left foot 2. Chronic tophaceous gout 1st MPJ Type of Procedure: I and D with wide debridement left foot Indications: Patient is a severe limb-threatening infection left foot. He is in need of immediate repeat I& D. I reviewed the procedure, recovery, expectation potential complications. These include but not limited to: Poor wound healing, continued infection, limb loss, . He understands and written consent was obtained. Site marked. Procedure Description: Patient brought the operating room placed in supine position on operating table. He was then placed under general anesthesia. 30 mL 0.25% Marcaine plain was injected into the left foot and ankle. He was then prepped and draped in sterile fashion. Standard time-out protocol followed. Left foot was exsanguinated and the high ankle tourniquet inflated to 250 mm Hg. A Metzenbaum scissor was placed into the original open wound and slid down the sinus tract. This extended all the way to the anterior ankle and distal tibia. Following this line scalp was used to open a sinus track along this entire course. Significant amount of purulent drainage was expressed from the wound. Proximal around the ankle the medial aspect there was significant area of necrotic subcutaneous tissue. Using a Versajet 14 mm Wand the necrotic tissue along the course of the sinus tract was debrided and removed. Small pocket of abscess was found coursing more plantar at the tip of the medial malleolus. This area was VAC rated and all necrotic tissue excised from this area. At no point did the infection track toward or expose any bone or joint. The necrotic soft tissues were sharply excised around the 1st metatarsal head medially. Necrotic tissue was excised back to healthy bleeding margins. There was additional gouty tophi exposed which was removed. There was no exposed bone or exposed joint. The wound along its entire course was then thoroughly irrigated with 3000 L normal saline using a pulse lavage. There was only healthy tissue remaining. The central portion of the wound was then closed with 3-0 nylon. 1 inch plain packing tape was placed in the proximal wound and down into the pocket under the medial malleolus and exited the proximal wound.. Another piece of packing tape was placed from the proximal wound all the way through exiting at the metatarsal head. Sterile dressing was then applied. Tourniquet was released normal capillary fill time returned all digits. He was transferred from OR to PACU vital signs stable and vascular status intact to the left foot. Continue with IV antibiotics. No cultures were obtained as we had excellent cultures are ready and no bone cultures obtained as we did not expose any bone. Anesthesia: GETA and local Hemostasis: ankle Estimated blood loss (mL): 5 Implants: Plain Packing tape strips x2 Specimens: none sent Disposition: PACU
[2025-08-05] MEDS: LOSARTAN POTASSIUM 50 MG TABLET PO (22:12)
[2025-08-05] MEDS: SENNOSIDES 1 TAB TABLET 2 TAB PO (22:12)
[2025-08-05] MEDS: NAPROXEN 250 MG TABLET PO (22:12)
[2025-08-06] MEDS: CEFAZOLIN 2 GM in 0.9 % SODIUM CHLORIDE Mini-bag 100 ML IVPB ×3 (00:02→15:57)
[2025-08-06] MEDS: HYDROCODONE-ACETAMIN 5-325 MG 1 TAB PO ×3 (01:00→09:17)
[2025-08-06 03:12] VITALS: BP 169/104; PULSE 46; TEMP 36.3; O2SAT 97
--- NOTE | 2025-08-06 06:11 | PC.NURSE ---
Addendum entered by Christy Solis RN 08/06/25 07:17: Blood?pressures?elevated. Dr?Leslie?updated and new orders?obtained.? Original Note: Shift note ([id number]): Patient pleasant,?alert?and?oriented.?Ambulated?with cane independently in?room.?Scheduled and PRN medications given for?pain in left foot?rated?-03/27.?Ice pack as needed.?Dressing clean,?dry?and intact.?Tolerating?regular?diet.?
[2025-08-06 06:47] LABS: Hematocrit* 37.9 % (37.0-53.0); Hemoglobin* 12.5 gm/dL (13.5-17.5); Mean Corpuscular HGB Conc 33 gm/dL (32-36); Mean Corpuscular Hemoglobin 30 pg (26-34); Mean Corpuscular Volume 91 fL (80-100); Red Blood Count* 4.18 m/uL (4.30-5.90); White Blood Count* 10.39 K/uL (4.50-11.00)
[2025-08-06 06:48] LABS: Albumin* 3.9 g/dL (3.3-5.0); Chloride* 99 mmol/L (96-114); Potassium* 4.1 mmol/L (3.6-5.1); Sodium* 137 mmol/L (135-149)
[2025-08-06 06:51] LABS: Anion Gap 11 mEq/L (7-15); Blood Urea Nitrogen* 12 mg/dL (7-30); Carbon Dioxide* 27 mmol/L (20-32); Creatinine* 0.8 mg/dL (0.5-1.5); Est. Creatinine Clearance* 98.69; Estimated Glomerular Filt Rate 105 ml/min
[2025-08-06 06:52] LABS: Calcium* 9.4 mg/dL (8.4-10.6); Glucose* 104 mg/dL (60-115)
[2025-08-06 06:53] LABS: Slide Review Reflex No
[2025-08-06 07:40] VITALS: BP 174/102; PULSE 54; RESP 16; TEMP 36.5; O2SAT 95; O2SAT 97
[2025-08-06] MEDS: SENNOSIDES 1 TAB TABLET 2 TAB PO ×2 (09:15→21:36)
[2025-08-06] MEDS: LACTOBACILLUS ACIDOPHILUS 1 TABLET 2 TAB PO ×3 (09:16→17:06)
[2025-08-06] MEDS: NAPROXEN 250 MG TABLET PO ×2 (09:16→21:35)
[2025-08-06] MEDS: SODIUM CHLORIDE 0.9 % (FLUSH) 10 ML SYRINGE 5 ML IVF ×2 (09:17→21:37)
[2025-08-06 11:18] VITALS: BP 142/82; BP 150/103; PULSE 60; RESP 16; TEMP 36.8; O2SAT 95
[2025-08-06] MEDS: LOSARTAN POTASSIUM 50 MG TABLET PO (11:49)
--- NOTE | 2025-08-06 13:23 | PM.IMPN1 ---
Assessment and Plan Assessment and plan (1) Joint abscess: Problem comment: Left MTP - washout 08/03. Tophi debrided. +MSSA - switching to IV Ancef and d/c vanc and zosyn. +monosodium urate crystals in Left MTP as expected No osteo by MR 2nd washout on 08/05 wound care; podiatry and/or Rheum consult after discharge Status: Acute (2) Chronic tophaceous gout of left foot: Problem comment: Left 1st MTP, right 2nd and 5th DTPs, right elbow tophi present - monosodium urate crystals on joint aspiration. uric acid lowered from 6.9 --> 3.8. Goal is less than six. will keep probenecid on hold. continue Allopurinol @ 300mg BID. colchine is effective in the first few weeks of uricosuric initiation and then used only in acute flares. I will hold prednisone after 08/05 dose; as chronic prednisone is not indicated. Status: Acute (3) Elevated blood pressure reading without diagnosis of hypertension: Problem comment: -outpatient readings 128-144, normal diastolic. will continue to monitor: amlodipine and lisinopril added to meds 08/05 Status: Acute Subjective Date Seen: 08/06/25 Interval history: Daily Progress Note - Hospital Medicine Day #: 4 Wash-Out #1 08/03 (Lory) 1. Left great toe surgical drainage of deep abscess including irrigation of the joint itself. 2. Left great toe excisional debridement including to the depth of bone Wash-Out #2 08/05 (Aubree) I and D with wide debridement left foot CC: abscess and gout in the left foot; post op I/D x2 24 HOUR UPDATE: Afebrile; pain management with Tylenol, oral dilaudid Vanc and Zosyn have been d/c'd and is now on Ancef for MSSA proven cultures. on prednisone taper 50->10mg since 06/15/25 Notable Labs, Micro, Rads, Interventions: 161/102. Pulse 62. Resp is 18. Afebrile. 96% on room air. CBC reflects that his white blood cell count has returned to normal. His hemoglobin has gone from 13.3 down to 11.5. His platelet count is 266. His electrolytes look normal. His renal function is normal. CRP is down trending nicely. Foot MRI Impression: 1. Marrow changes related to gouty arthropathy at the great toe MTP joint with multiple well-defined cortical erosions. No marrow replacement to suggest osteomyelitis. 2. Soft tissue irregularity along the medial aspect of the great toe at the level of the 1st MTP joint may correspond to soft tissue wound and/or site of reported surgical debridement completed today. There is a small fluid collection in this region and an additional partially imaged elongated fluid collection along the medial aspect of the forefoot as above. Wound cultures from both the ER and from surgical I&D show MSSA. Staph aureus. Essentially pansensitive except for ciprofloxacin which is intermediate. No anaerobes. Positive monosodium crystals. Blood cultures remain negative. Objective: alert, well-appearing. Asking appropriate questions Vitals: see above Lungs: Clear. Cardiac: S1S2. MSK:will await for podiatry to assess Disposition/Potential discharge - pending wound cultures and osteomyelitis determination. Today I spent 50 minutes seeing the patient, reviewing Expanse and EPIC notes/diagnostics, discussing the care plan with our care time that includes social work, PT/OT, pharmacy, RT, residential and documenting my impressions and plan in the medical record. Exam Const: Vital Signs, click to edit/add: Vital Signs - 24 hr 08/05/25 15:56 08/05/25 15:56 08/05/25 15:58 Temperature 97.0 F L Pulse Rate Pulse Rate [Pulse Oximeter] 62 Respiratory Rate 18 18 18 Blood Pressure Blood Pressure [Le ft Arm] 161/102 H Blood Pressure [Ri ght Arm] Pulse Oximetry 95 96 Oxygen Delivery Me thod Room Air Room Air 08/05/25 19:05 08/05/25 19:10 08/05/25 19:15 Temperature 97.7 F Pulse Rate 56 L 57 L 56 L Pulse Rate [Pulse Oximeter] Respiratory Rate 14 14 14 Blood Pressure 162/96 H 164/99 H 153/100 H Blood Pressure [Le ft Arm] Blood Pressure [Ri ght Arm] Pulse Oximetry 97 96 97 Oxygen Delivery Me thod Room Air Room Air Room Air 08/05/25 19:20 08/05/25 19:25 08/05/25 19:30 Temperature Pulse Rate 57 L 57 L 57 L Pulse Rate [Pulse Oximeter] Respiratory Rate 14 14 14 Blood Pressure 170/100 H 185/100 H 169/93 H Blood Pressure [Le ft Arm] Blood Pressure [Ri ght Arm] Pulse Oximetry 96 96 95 Oxygen Delivery Me thod Room Air Room Air Room Air 08/05/25 19:35 08/05/25 19:45 08/05/25 20:00 Temperature 98.9 F 97.7 F Pulse Rate 50 L Pulse Rate [Pulse Oximeter] 54 L 56 L Respiratory Rate 14 18 Blood Pressure 168/95 H Blood Pressure [Le ft Arm] 192/110 H 190/116 H Blood Pressure [Ri ght Arm] Pulse Oximetry 95 96 96 Oxygen Delivery Me thod Room Air Room Air Room Air 08/05/25 20:15 08/05/25 20:30 08/05/25 20:45 Temperature 97.4 F L 96.8 F L Pulse Rate Pulse Rate [Pulse Oximeter] 56 L 63 57 L Respiratory Rate 18 18 Blood Pressure Blood Pressure [Le ft Arm] 166/110 H 156/110 H 164/106 H Blood Pressure [Ri ght Arm] Pulse Oximetry 96 94 97 Oxygen Delivery Me thod Room Air Room Air Room Air 08/05/25 21:15 08/05/25 21:45 08/05/25 22:00 Temperature 97.1 F L Pulse Rate Pulse Rate [Pulse Oximeter] 57 L 62 Respiratory Rate Blood Pressure Blood Pressure [Le ft Arm] 193/121 H 199/121 H 221/126 H Blood Pressure [Ri ght Arm] Pulse Oximetry 96 97 Oxygen Delivery Me thod Room Air Room Air 08/05/25 22:38 08/05/25 23:46 08/06/25 03:12 Temperature 97.2 F L 97.4 F L Pulse Rate Pulse Rate [Pulse Oximeter] 51 L 46 L Respiratory Rate 18 16 Blood Pressure Blood Pressure [Le ft Arm] 152/96 H 169/104 H Blood Pressure [Ri ght Arm] Pulse Oximetry 97 96 97 Oxygen Delivery Me thod Room Air Room Air Room Air 08/06/25 07:40 08/06/25 07:40 08/06/25 07:40 Temperature 97.7 F Pulse Rate Pulse Rate [Pulse Oximeter] 54 L 54 L Respiratory Rate 16 16 16 Blood Pressure Blood Pressure [Le ft Arm] 174/102 H Blood Pressure [Ri ght Arm] Pulse Oximetry 95 97 Oxygen Delivery Me thod Room Air Room Air 08/06/25 11:18 Temperature 98.2 F Pulse Rate Pulse Rate [Pulse Oximeter] 60 Respiratory Rate 16 Blood Pressure Blood Pressure [Le ft Arm] 142/82 H Blood Pressure [Ri ght Arm] 150/103 H Pulse Oximetry 95 Oxygen Delivery Me thod Room Air Labs Labs: Laboratory Results - last 24 hr 08/06/25 06:01 WBC 10.39 RBC 4.18 L Hgb 12.5 L Hct 37.9 MCV 91 MCH 30 MCHC 33 Plt Count 242 Sodium 137 Potassium 4.1 Chloride 99 Carbon Dioxide 27 Anion Gap 11 BUN 12 Creatinine 0.8 Estimated Creat Clear 98.69 Estimated GFR 105 Glucose 104 Uric Acid 3.7 Calcium 9.4 Phosphorus 4.8 H C-Reactive Protein 3.4 H Albumin 3.9
[2025-08-06 15:30] VITALS: BP 147/88; PULSE 58; RESP 16; TEMP 36.7; O2SAT 96
[2025-08-06 16:56] VITALS: PULSE 58; RESP 16
[2025-08-06] MEDS: TRAMADOL HCL 50 MG TABLET 100 MG PO (17:05)
--- NOTE | 2025-08-06 19:01 | W.PM.PODPN ---
Podiatry-PN: Subj Subjective Date Seen: 08/06/25 Interval history: Patient seen bedside POD #1 following repeat I and D of the left foot. he is doing well. pain controlled with current pain meds. Denies F/C/N/V/CP/SOB. Exam Narrative: Exam Narrative: General: No distress Vascular: Palpable pedal pulses left foot. Neuro: Sensate to light touch throughout. Musculoskeletal: Normal strength with ankle and 1st MPJ range of motion. Derm: Some residual erythema remains along the incision site. Much improved from yesterday. Packing in place and is removed. Some old hematoma expressed from the proximal wound but no purulence. Wound over the 1st MPJ shows improved and increased granulation tissue. There is small amount of tophi within the inferior aspect of the wound. There is no purulence noted. Assessment: S/P I&D left foot, chronic tophaceous gout left foot Plan: Dressings removed and the packing removed. The wound tunnel was irrigated with 50 mL normal saline till running clear. No new purulence. Sterile dressing applied with wet-to-dry saline moistened gauze applied to the metatarsal head wound. He will need dressing change twice daily with wet to dry dressing distally over the metatarsal head. Anticipate discharge in 1-2 days. Const: Vital Signs, click to edit/add: Vital Signs - 24 hr 08/05/25 19:05 08/05/25 19:10 08/05/25 19:15 Temperature 97.7 F Pulse Rate 56 L 57 L 56 L Pulse Rate [Pulse Oximeter] Respiratory Rate 14 14 14 Blood Pressure 162/96 H 164/99 H 153/100 H Blood Pressure [Le ft Arm] Blood Pressure [Ri ght Arm] Pulse Oximetry 97 96 97 Oxygen Delivery Me thod Room Air Room Air Room Air 08/05/25 19:20 08/05/25 19:25 08/05/25 19:30 Temperature Pulse Rate 57 L 57 L 57 L Pulse Rate [Pulse Oximeter] Respiratory Rate 14 14 14 Blood Pressure 170/100 H 185/100 H 169/93 H Blood Pressure [Le ft Arm] Blood Pressure [Ri ght Arm] Pulse Oximetry 96 96 95 Oxygen Delivery Me thod Room Air Room Air Room Air 08/05/25 19:35 08/05/25 19:45 08/05/25 20:00 Temperature 98.9 F 97.7 F Pulse Rate 50 L Pulse Rate [Pulse Oximeter] 54 L 56 L Respiratory Rate 14 18 Blood Pressure 168/95 H Blood Pressure [Le ft Arm] 192/110 H 190/116 H Blood Pressure [Ri ght Arm] Pulse Oximetry 95 96 96 Oxygen Delivery Me thod Room Air Room Air Room Air 08/05/25 20:15 08/05/25 20:30 08/05/25 20:45 Temperature 97.4 F L 96.8 F L Pulse Rate Pulse Rate [Pulse Oximeter] 56 L 63 57 L Respiratory Rate 18 18 Blood Pressure Blood Pressure [Le ft Arm] 166/110 H 156/110 H 164/106 H Blood Pressure [Ri ght Arm] Pulse Oximetry 96 94 97 Oxygen Delivery Me thod Room Air Room Air Room Air 08/05/25 21:15 08/05/25 21:45 08/05/25 22:00 Temperature 97.1 F L Pulse Rate Pulse Rate [Pulse Oximeter] 57 L 62 Respiratory Rate Blood Pressure Blood Pressure [Le ft Arm] 193/121 H 199/121 H 221/126 H Blood Pressure [Ri ght Arm] Pulse Oximetry 96 97 Oxygen Delivery Me thod Room Air Room Air 08/05/25 22:38 08/05/25 23:46 08/06/25 03:12 Temperature 97.2 F L 97.4 F L Pulse Rate Pulse Rate [Pulse Oximeter] 51 L 46 L Respiratory Rate 18 16 Blood Pressure Blood Pressure [Le ft Arm] 152/96 H 169/104 H Blood Pressure [Ri ght Arm] Pulse Oximetry 97 96 97 Oxygen Delivery Me thod Room Air Room Air Room Air 08/06/25 07:40 08/06/25 07:40 08/06/25 07:40 Temperature 97.7 F Pulse Rate Pulse Rate [Pulse Oximeter] 54 L 54 L Respiratory Rate 16 16 16 Blood Pressure Blood Pressure [Le ft Arm] 174/102 H Blood Pressure [Ri ght Arm] Pulse Oximetry 95 97 Oxygen Delivery Me thod Room Air Room Air 08/06/25 11:18 08/06/25 15:30 08/06/25 15:30 Temperature 98.2 F 98.0 F Pulse Rate Pulse Rate [Pulse Oximeter] 60 58 L Respiratory Rate 16 16 16 Blood Pressure Blood Pressure [Le ft Arm] 142/82 H 147/88 H Blood Pressure [Ri ght Arm] 150/103 H Pulse Oximetry 95 96 96 Oxygen Delivery Me thod Room Air Room Air Room Air 08/06/25 16:56 Temperature Pulse Rate Pulse Rate [Pulse Oximeter] 58 L Respiratory Rate 16 Blood Pressure Blood Pressure [Le ft Arm] Blood Pressure [Ri ght Arm] Pulse Oximetry Oxygen Delivery Me thod Podiatry-PN: Obj Labs Labs: Laboratory Results - last 24 hr 08/06/25 06:01 WBC 10.39 RBC 4.18 L Hgb 12.5 L Hct 37.9 MCV 91 MCH 30 MCHC 33 Plt Count 242 Sodium 137 Potassium 4.1 Chloride 99 Carbon Dioxide 27 Anion Gap 11 BUN 12 Creatinine 0.8 Estimated Creat Clear 98.69 Estimated GFR 105 Glucose 104 Uric Acid 3.7 Calcium 9.4 Phosphorus 4.8 H C-Reactive Protein 3.4 H Albumin 3.9
[2025-08-06 20:18] VITALS: BP 185/110; PULSE 58; RESP 16; TEMP 36.5; O2SAT 94
[2025-08-07] VITALS (9 sets, daily range): BP systolic 152–181; BP diastolic 90–109; PULSE 46–57; RESP 16–18; TEMP 36.3–36.6; O2SAT 93–98
[2025-08-07] MEDS: TRAMADOL HCL 50 MG TABLET 100 MG PO ×2 (00:39→11:04)
[2025-08-07] MEDS: CEFAZOLIN 2 GM in 0.9 % SODIUM CHLORIDE Mini-bag 100 ML IVPB ×4 (00:40→23:48)
[2025-08-07] MEDS: ACETAMINOPHEN 500 MG TABLET 1000 MG PO ×2 (05:18→11:04)
--- NOTE | 2025-08-07 05:35 | PC.NURSE ---
Shift note ([id number]): Patient pleasant,?alert?and?oriented.?Ambulating?independently in?room?and hallway.?Given scheduled?Naproxin,?PRN?hydroxyzine and?PRN?Tylenol?for?pain in left foot?rated?-01/25.?Ice packs?applied?as needed.?Dressing clean,?dry?and intact.?CMS?intact.?
[2025-08-07 06:17] LABS: Hematocrit* 38.2 % (37.0-53.0); Hemoglobin* 12.7 gm/dL (13.5-17.5); Mean Corpuscular HGB Conc 33 gm/dL (32-36); Mean Corpuscular Hemoglobin 30 pg (26-34); Mean Corpuscular Volume 90 fL (80-100); Red Blood Count* 4.27 m/uL (4.30-5.90); White Blood Count* 9.21 K/uL (4.50-11.00)
[2025-08-07 06:21] LABS: Slide Review Reflex No
[2025-08-07 06:31] LABS: Chloride* 99 mmol/L (96-114)
[2025-08-07 06:32] LABS: Potassium* 3.9 mmol/L (3.6-5.1); Sodium* 137 mmol/L (135-149)
[2025-08-07 06:35] LABS: Anion Gap 8 mEq/L (7-15); Blood Urea Nitrogen* 17 mg/dL (7-30); Calcium* 9.2 mg/dL (8.4-10.6); Carbon Dioxide* 30 mmol/L (20-32); Creatinine* 0.9 mg/dL (0.5-1.5); Est. Creatinine Clearance* 87.73; Estimated Glomerular Filt Rate 101 ml/min; Glucose* 78 mg/dL (60-115)
--- NOTE | 2025-08-07 07:30 | PC.NURSE ---
Notified MD that patient has elevated BP. BP medication and pain medications given to him. Will recheck.
[2025-08-07] MEDS: NAPROXEN 250 MG TABLET PO ×2 (07:47→20:13)
[2025-08-07] MEDS: LACTOBACILLUS ACIDOPHILUS 1 TABLET 2 TAB PO ×3 (07:47→20:12)
[2025-08-07] MEDS: LOSARTAN POTASSIUM 50 MG TABLET PO ×2 (07:48→11:53)
[2025-08-07] MEDS: SENNOSIDES 1 TAB TABLET 2 TAB PO ×2 (07:48→20:13)
--- NOTE | 2025-08-07 09:39 | P.IMPN_ITS ---
Assessment and Plan Assessment and plan (1) Joint abscess: Problem comment: Left MTP - washout 08/03. Tophi debrided. +MSSA - switching to IV Ancef and d/c vanc and zosyn. +monosodium urate crystals in Left MTP as expected No osteo by MR 2nd washout on 08/05 wound care; podiatry and Rheum consult after discharge Status: Acute (2) Chronic tophaceous gout of left foot: Problem comment: Left 1st MTP, right 2nd and 5th DTPs, right elbow tophi present - monosodium urate crystals on joint aspiration. uric acid lowered from 6.9 --> 3.8. Goal is less than six. will keep probenecid on hold. continue Allopurinol @ 300mg BID. colchine is effective in the first few weeks of uricosuric initiation and then used only in acute flares. prednisone taper with 5mg started on 08/07 for five days. chronic prednisone is not indicated. Status: Acute (3) Elevated blood pressure reading without diagnosis of hypertension: Problem comment: -outpatient readings 128-144, normal diastolic. -160's/110s here. We had treated with metoprolol/amlodipine/lisinopril. Either got jam or they were ineffective. -08/06 started losartan - more effective with added benefit of uricosuric property. -will keep on discharge; pt will monitor as an outpatient and see Dr. Bustos for further management. Status: Acute Subjective Date Seen: 08/07/25 Interval history: Daily Progress Note - Hospital Medicine Day #: 5 Wash-Out #1 08/03 (Lory) 1. Left great toe surgical drainage of deep abscess including irrigation of the joint itself. 2. Left great toe excisional debridement including to the depth of bone Wash-Out #2 08/05 (Aubree) I and D with wide debridement left foot CC: abscess and gout in the left foot; post op I/D x2 24 HOUR UPDATE: Afebrile; pain management with Tylenol, oral dilaudid Vanc and Zosyn have been d/c'd and is now on Ancef for MSSA proven cultures. on prednisone taper 50->10mg --> 5mg since 06/15/25 Notable Labs, Micro, Rads, Interventions: 162/90. Pulse 54. Resp is 16. Afebrile. 98% on room air. CBC reflects that his white blood cell count has returned to normal. His hemoglobin is 12.7 His platelet count is 252. His electrolytes look normal. His renal function is normal. CRP is down trending nicely. Foot MRI Impression: 1. Marrow changes related to gouty arthropathy at the great toe MTP joint with multiple well-defined cortical erosions. No marrow replacement to suggest osteomyelitis. 2. Soft tissue irregularity along the medial aspect of the great toe at the level of the 1st MTP joint may correspond to soft tissue wound and/or site of reported surgical debridement completed today. There is a small fluid collection in this region and an additional partially imaged elongated fluid collection along the medial aspect of the forefoot as above. Wound cultures from both the ER and from surgical I&D show MSSA. Staph aureus. Essentially pansensitive except for ciprofloxacin which is intermediate. No anaerobes. Positive monosodium crystals. Blood cultures remain negative. Objective: alert, well-appearing. Asking appropriate questions Vitals: see above Lungs: Clear. Cardiac: S1S2. MSK:erythema is considerably much improved, open ulceration has excellent granulation tissue. sutures are clean/dry intact. Disposition/Potential discharge - pending wound cultures and osteomyelitis determination. Today I spent 50 minutes seeing the patient, reviewing Expanse and EPIC notes/diagnostics, discussing the care plan with our care time that includes social work, PT/OT, pharmacy, RT, fdc and documenting my impressions and plan in the medical record. Exam 2 Const: Vital Signs, click to edit/add: Vital Signs - 24 hr 08/06/25 11:18 08/06/25 15:30 08/06/25 15:30 Temperature 98.2 F 98.0 F Pulse Rate [Pulse Oximeter] 60 58 L Respiratory Rate 16 16 16 Blood Pressure [Le ft Arm] 142/82 H 147/88 H Blood Pressure [Ri ght Arm] 150/103 H Pulse Oximetry 95 96 96 Oxygen Delivery Me thod Room Air Room Air Room Air 08/06/25 16:56 08/06/25 20:18 08/07/25 00:46 Temperature 97.7 F Pulse Rate [Pulse Oximeter] 58 L 58 L Respiratory Rate 16 16 16 Blood Pressure [Le ft Arm] Blood Pressure [Ri ght Arm] 185/110 H Pulse Oximetry 94 96 Oxygen Delivery Me thod Room Air Room Air 08/07/25 00:46 08/07/25 05:05 08/07/25 07:34 Temperature 97.4 F L 97.5 F L 97.9 F Pulse Rate [Pulse Oximeter] 46 L 57 L 54 L Respiratory Rate 16 16 16 Blood Pressure [Le ft Arm] 154/102 H 181/100 H Blood Pressure [Ri ght Arm] 165/103 H Pulse Oximetry 95 93 97 Oxygen Delivery Tx thod Room Air Room Air Room Air 08/07/25 08:56 08/07/25 09:37 Temperature Pulse Rate [Pulse Oximeter] Respiratory Rate Blood Pressure [Le ft Arm] Blood Pressure [Ri ght Arm] 162/90 H Pulse Oximetry 98 Oxygen Delivery Tx thod Room Air Labs Labs: Laboratory Results - last 24 hr 08/07/25 05:55 WBC 9.21 RBC 4.27 L Hgb 12.7 L Hct 38.2 MCV 90 MCH 30 MCHC 33 Plt Count 252 Sodium 137 Potassium 3.9 Chloride 99 Carbon Dioxide 30 Anion Gap 8 BUN 17 Creatinine 0.9 Estimated Creat Clear 87.73 Estimated GFR 101 Glucose 78 Calcium 9.2 C-Reactive Protein 2.1 H
--- NOTE | 2025-08-07 11:48 | P.ANES_ITS ---
Anesthesia Charges Start Date/Time Anesthesia Start Date: 08/05/25 Anesthesia Start Time: 17:31 Stop Date/Time Anesthesia Stop Date: 08/05/25 Anesthesia Stop Time: 19:05 Summary Emergency: ASSOCIATE AUTOMATION ENGINEER Coding CPT Codes CPT Codes: ANESTH LOWER LEG BONE SURG - 40971 ([id number]) P2 - PATIENT W/MILD SYST DISEASE, QZ - ASSOCIATE AUTOMATION ENGINEER SVC W/O ASTRONAUTICAL ENGINEER BY Additional Codes: Summary - Emergency: ASSOCIATE AUTOMATION ENGINEER ([id number])
--- NOTE | 2025-08-07 11:48 | W.ANESCHARGE ---
Anesthesia Charges Start Date/Time Anesthesia Start Date: 08/05/25 Anesthesia Start Time: 17:31 Stop Date/Time Anesthesia Stop Date: 08/05/25 Anesthesia Stop Time: 19:05 Summary Emergency: MILLER APPRENTICE Coding CPT Codes CPT Codes: ANESTH LOWER LEG BONE SURG - 77104 ([id number]) P2 - PATIENT W/MILD SYST DISEASE, QZ - MILLER APPRENTICE SVC W/O IMMIGRATION CONSULTANT BY Additional Codes: Summary - Emergency: MILLER APPRENTICE ([id number])
--- NOTE | 2025-08-07 12:42 | PM.DS1 ---
DS: Providers Provider Date Seen: 08/07/25 Date of admission: 08/03/25 15:00 Primary care physician: Dylan Bustos MD Admitting Clinician: Daisy Wiley MD Consults: 08/03/25 13:59 Consult to Physical Therapy [CONS] Routine Comment: Reason(s) for PT Consult:: Evaluate and Treat Any Restrictions?:: See Comment Comment: Encourage elevation while sedentary, but when ambulating, may be WBAT LLE; cane/crutch/walker assist PRN 08/04/25 08:00 Consult to Physician [CONS] Routine Comment: Dr. Mak - call him Monday morning Consulting Provider: Hima Mak Has provider been notified: No Consult to Wound Care [CONS] Routine Comment: see pics in H/P - open wound, I/D 08/02. Consulting Provider[facility] Attending Phys[facility] on discharge[facility]: 08/08/25 DS: Diagnosis Discharge Diagnosis (1) Joint abscess: Status: Acute Problem details: Left MTP - washout 08/03. Tophi debrided. +MSSA - switching to IV Ancef and d/c vanc and zosyn. +monosodium urate crystals in Left MTP as expected No osteo by MR 2nd washout on 08/05 wound care; podiatry and Rheum consult after discharge (2) Chronic tophaceous gout of left foot: Status: Acute Problem details: Left 1st MTP, right 2nd and 5th DTPs, right elbow tophi present - monosodium urate crystals on joint aspiration. uric acid lowered from 6.9 --> 3.8. Goal is less than six. will keep probenecid on hold. continue Allopurinol @ 300mg BID. colchine is effective in the first few weeks of uricosuric initiation and then used only in acute flares. prednisone taper with 5mg started on 08/07 for five days. chronic prednisone is not indicated. (3) Elevated blood pressure reading without diagnosis of hypertension: Status: Acute Problem details: -outpatient readings 128-144, normal diastolic. -160's/110s here. We had treated with metoprolol/amlodipine/lisinopril. Either got jam or they were ineffective. -11/19 started losartan - more effective with added benefit of uricosuric property. -will keep on discharge; pt will monitor as an outpatient and see Dr. Bustos for further management. DS: Summary Hospital Course Hospital Course: BRIEF HOSPITAL COURSE: Patient was admitted for days. Synopsis of acute inpatient issues are outlined above. Chronic medical conditions with notable findings outlined above. DISCHARGE MEDICATIONS: See Reconciled list - SIGNIFICANT CHANGES: Specific instructions to the patient and follow-up are outlined below. REVIEW OF SYSTEMS No new chest pain or dyspnea Pain controlled No voiding difficulties Tolerating diet challenge PHYSICAL EXAM: CONSTITUTIONAL: Conversive, good historian. A/O. Knows setting and context. GENERAL: Well-developed and above ideal body weight, in no respiratory distress. VITAL SIGNS: see record. HEENT: Sclerae are anicteric. No petechiae. CARDIAC: rhythm is regular. There is no S3 or rub. No harsh murmurs. Extremities show trace edema with symmetrical pulses. PULM: good air entry with no wheeze. NEURO: Speech is fluent. A brief neurologic exam is negative. SKIN: No rashes, petechiae, concerning changes PSYCHIATRIC: Euthymic. DISPOSITION: Time spent on discharge 37 minutes. Time Spent with Patient Time attestation: Total time spent providing and/or coordinating discharge services: Exam Const: Vital Signs, click to edit/add: Vital Signs - 24 hr 08/06/25 15:30 08/06/25 15:30 08/06/25 16:56 Temperature 98.0 F Pulse Rate [Pulse Oximeter] 58 L 58 L Respiratory Rate 16 16 16 Blood Pressure [Le ft Arm] 147/88 H Blood Pressure [Ri ght Arm] Pulse Oximetry 96 96 Oxygen Delivery Me thod Room Air Room Air 08/06/25 20:18 08/07/25 00:46 08/07/25 00:46 Temperature 97.7 F 97.4 F L Pulse Rate [Pulse Oximeter] 58 L 46 L Respiratory Rate 16 16 16 Blood Pressure [Le ft Arm] 154/102 H Blood Pressure [Ri ght Arm] 185/110 H Pulse Oximetry 94 96 95 Oxygen Delivery Me thod Room Air Room Air Room Air 08/07/25 05:05 08/07/25 07:34 08/07/25 08:56 Temperature 97.5 F L 97.9 F Pulse Rate [Pulse Oximeter] 57 L 54 L Respiratory Rate 16 16 Blood Pressure [Le ft Arm] 181/100 H Blood Pressure [Ri ght Arm] 165/103 H Pulse Oximetry 93 97 98 Oxygen Delivery Me thod Room Air Room Air Room Air 08/07/25 09:37 08/07/25 11:01 Temperature 97.6 F Pulse Rate [Pulse Oximeter] 57 L Respiratory Rate 16 Blood Pressure [Le ft Arm] 152/109 H Blood Pressure [Ri ght Arm] 162/90 H Pulse Oximetry 96 Oxygen Delivery Me thod Room Air DS: Data Data Completed and Pending Labs on day of discharge: Labs from last 24 hours 08/07/25 05:55 WBC 9.21 RBC 4.27 L Hgb 12.7 L Hct 38.2 MCV 90 MCH 30 MCHC 33 Plt Count 252 Sodium 137 Potassium 3.9 Chloride 99 Carbon Dioxide 30 Anion Gap 8 BUN 17 Creatinine 0.9 Estimated Creat Clear 87.73 Estimated GFR 101 Glucose 78 Calcium 9.2 C-Reactive Protein 2.1 H Preliminary micro results at discharge 08/03/25 09:54 Blood Culture - Preliminary Blood NO GROWTH AFTER 96 HOURS 08/03/25 09:45 Blood Culture - Preliminary Blood NO GROWTH AFTER 96 HOURS Discharge Plan Discharge Disposition: Home, Self-Care Date of Admission: 08/03/25 15:00 Attending Provider on Discharge: Daisy Wiley Consulting Providers: Hima Mak Primary Care Provider: Dylan Bustos Condition: Stable Anticipated Discharge Date/Time: 08/08/25 11:54 Discharge Medications: New losartan 50 mg Tablet 100 mg PO DAILY Qty: 30 0RF prednisone 5 mg Tablet 5 mg PO DAILY Qty: 3 0RF hydromorphone 2 mg Tablet 2 - 4 mg PO Q2H PRNQty: 20 0RF sulfamethoxazole-trimethoprim [Bactrim DS] 800-160 mg tablet 1 tab PO BID Qty: 14 0RF Rx Instructions: PLEASE DISREGARD BACTRIM RX (SHOULD BE BACTRIM DS) Continued colchicine 0.6 mg capsule 0.6 mg PO BID Qty: 180 1RF Changed allopurinol 300 mg tablet 300 mg PO BID Qty: 90 1RF Held peg 3350-electrolytes [Golytely] 236-22.74-6.74 -5.86 gram recon soln 240 ml PO ONCE Qty: 4000 0RF Hold Instructions: Resume on 09/18/25. until colonoscopy is rescheduled Rx Instructions: 4pm day prior to procedure. Drink 8oz glass every 15 minutes until 1/2 of solution is gone. 6 hours prior to your procedure time drink 8oz glass every 15 minutes until remaining solution is gone. Discontinued probenecid 500 mg tablet 500 mg PO BID Qty: 180 1RF prednisone 10 mg tablet 10 mg PO QDAY Qty: 30 1RF Discharge Orders: Discharge Order (Routine); Ordered 08/08/25 Ordered By: Lida Corbett Patient Education: Sulfamethoxazole/Trimethoprim (By mouth), Prednisone (By mouth), Hydromorphone (By mouth), Losartan (By mouth), Gout (GEN), Abscess Incision and Drainage (DC) Additional Instructions: 1. Take your oral antibiotic until completed. Take with food. 2. Take your blood pressure daily. Goal is 140/90 or less. Write it down daily. Take the losartan and f/u with Dr. Bustos. 3. Your sutures will likely come out in 10-14 days; Dr. Mak will set up your f/u appt. 4. Wound care clinic will be calling you for a f/u next week to see how the open part of your wound is healing. 5. [facility] has been consulted; You have an appt in August. 6. See Dr. Bustos after [facility] and Dr. Mak to discuss the go forward plan for blood pressure and gout. 7. For dressing changes: apply saline moistened 2x2 gauze over open wound twice daily then cover with dry dressing until seen in wound care center Activity Level: Activity as Tolerated and Other Activity Detail: 1. Wear the boot with dressing under a thick sock until sutures are out or otherwise cleared by Podiatry/Wound care. 2. Wound care per Dr. Mak. Discharge Diet: Other Follow Up Appointments: [facility] [Provider Group] - 09/03/25 1:20 pm Referral Note: Appointment for September 03 at [facility] for left foot Lab is at 1:20p and Ultrasound will be for 2:30p. On September 04 [facility] at 7:30am is check in appointment will be at 8am. [facility] [Provider Group, Wound Care] - 08/11/25 2:15 pm Referral Note: referral has been made Dylan Bustos MD [Primary Care Provider, Family Practice] - 09/03/25 1:20 pm Referral Note: 4-6 weeks Hima Mak DPM [Staff Physician, Podiatry] - 08/12/25 2:30 am Referral Note: Forms: My[facility] Info Instructions
--- NOTE | 2025-08-07 14:33 | PC.NURSE ---
End of Shift Note: Took over care of this patient around 11:30 am this morning. He is up and about indep and did not need anything from me. He has basically been up and walking the halls with his can since I took over his care. Have stopped in to check in when he has sat down once but declined needing anything.
[2025-08-07] MEDS: SODIUM CHLORIDE 0.9 % (FLUSH) 10 ML SYRINGE 5 ML IVF ×2 (16:07→23:49)
--- NOTE | 2025-08-07 18:06 | P.PODPN_ITS ---
Podiatry-PN: Subj Subjective Time Seen by Provider: 18:00 Date Seen: 08/07/25 Interval history: Patient seen bedside following I and D of the left foot. He is currently postop day 2. He states he has been up on the foot moving around better today with less pain. Denies any fever, chills, nausea, vomiting, chest pain, shortness of breath. Pain is well controlled with the current pain medications. Exam Narrative: Exam Narrative: General: no distress Vascular: Palpable pedal pulses left. Neuro: Sensate to light touch throughout left. Musculoskeletal: Normal ankle joint range of motion. Normal muscle strength. Derm: Proximal open wound is healing nicely. No active drainage. No purulence. No fluctuance. Incision is healing nicely. Erythema is substantially improved. Edema nearly resolved. Open wound 1st metatarsal head with increased granulation tissue. No purulence. Run Date: [address] [place] [address] + Clinics Page: 1 Run Date: 1802 1999 [facility], [place] [id number] Clinical Laborato ry Report Na me: Deondre Vega Acct: [id number] Tori c: JOAN Age/ Sex: 55/M DO B: 1970 Status: ADM IN Reg Dr: Power Cardenas Speci men: [id number] COMP Collected : 08/03/25-UNK Received: 08/03-1412 Source: Titus Wood Descrip: [place] Dr: Power Cardenas Other Dr: Daquan Procedure Result Si te Gram Stain* Final ML Result MODERATE GRAM POS COCCI IN CLUSTERS & IN KARTHIK RS Aerobic Cult ure* Final ML Organism 1 Staphylococcus aureus Tristian ntity of Growth Large amoun t S a ureus AGUSTO RX --- ------ --- Ciprofloxacin 2 I Clindamycin 0.2 5 S Daptomycin 0.2 5 S Doxycycline <=0 .5 S Erythromycin <=0 .25 S Gentamicin <=0 .5 S Levofloxacin 1 S Linezolid 1 S * Moxifloxacin <=0 .25 S * Oxacillin Agusto <=0 .25 S Rifampin <=0 .5 S Tetracycline <=1 S Tigecycline <=0 .12 S Trimethoprim/Sul famethoxazole <=1 0 S Vancomycin 1 S An aerobic Culture* Final ML NO ANAEROBES IS OLATED AT 48 HRS. Labs today: CRP 2.1, white blood cell count 9.21 Assessment: S/P I&D left foot postop day 2, chronic tophaceous gout left foot Plan: Foot has improved substantially since yesterday. Sterile dressing performed today with with dry dressing over the 1st metatarsal head wound. Recommend discharge home tomorrow. Continue IV antibiotics until discharge. Agree with Bactrim outpatient. Continue saline moistened gauze wet-to-dry dressing twice daily until seen by wound center. Follow up with myself next Monday at the [facility]. Const: Vital Signs, click to edit/add: Vital Signs - 24 hr 08/06/25 20:18 08/07/25 00:46 08/07/25 00:46 Temperature 97.7 F 97.4 F L Pulse Rate [Pulse Oximeter] 58 L 46 L Respiratory Rate 16 16 16 Blood Pressure [Le ft Arm] 154/102 H Blood Pressure [Ri ght Arm] 185/110 H Pulse Oximetry 94 96 95 Oxygen Delivery Me thod Room Air Room Air Room Air 08/07/25 05:05 08/07/25 07:34 08/07/25 08:56 Temperature 97.5 F L 97.9 F Pulse Rate [Pulse Oximeter] 57 L 54 L Respiratory Rate 16 16 Blood Pressure [Le ft Arm] 181/100 H Blood Pressure [Ri ght Arm] 165/103 H Pulse Oximetry 93 97 98 Oxygen Delivery Me thod Room Air Room Air Room Air 08/07/25 09:37 08/07/25 11:01 08/07/25 16:00 Temperature 97.6 F Pulse Rate [Pulse Oximeter] 57 L 53 L Respiratory Rate 16 Blood Pressure [Le ft Arm] 152/109 H Blood Pressure [Ri ght Arm] 162/90 H Pulse Oximetry 96 Oxygen Delivery Me thod Room Air 08/07/25 16:00 08/07/25 16:00 Temperature 97.9 F Pulse Rate [Pulse Oximeter] 53 L Respiratory Rate 18 18 Blood Pressure [Le ft Arm] 162/101 H Blood Pressure [Ri ght Arm] Pulse Oximetry 96 96 Oxygen Delivery Me thod Room Air Room Air Podiatry-PN: Obj Labs Labs: Laboratory Results - last 24 hr 08/07/25 05:55 WBC 9.21 RBC 4.27 L Hgb 12.7 L Hct 38.2 MCV 90 MCH 30 MCHC 33 Plt Count 252 Sodium 137 Potassium 3.9 Chloride 99 Carbon Dioxide 30 Anion Gap 8 BUN 17 Creatinine 0.9 Estimated Creat Clear 87.73 Estimated GFR 101 Glucose 78 Calcium 9.2 C-Reactive Protein 2.1 H
--- NOTE | 2025-08-07 20:22 | PC.NURSE ---
Pt up independently in the paul. Pain managed per NOV.
[2025-08-08] MEDS: ACETAMINOPHEN 500 MG TABLET 1000 MG PO ×2 (00:31→11:16)
[2025-08-08 06:00] VITALS: RESP 16
[2025-08-08 07:00] VITALS: RESP 20; O2SAT 96
[2025-08-08] MEDS: CEFAZOLIN 2 GM in 0.9 % SODIUM CHLORIDE Mini-bag 100 ML IVPB ×2 (07:44→14:00)
[2025-08-08] MEDS: SODIUM CHLORIDE 0.9 % (FLUSH) 10 ML SYRINGE 5 ML IVF (07:45)
[2025-08-08] MEDS: LOSARTAN POTASSIUM 50 MG TABLET 100 MG PO (07:46)
[2025-08-08] MEDS: NAPROXEN 250 MG TABLET PO (07:47)
[2025-08-08] MEDS: SENNOSIDES 1 TAB TABLET 2 TAB PO (07:52)
[2025-08-08] MEDS: LACTOBACILLUS ACIDOPHILUS 1 TABLET 2 TAB PO ×2 (07:52→11:16)
[2025-08-08 08:00] VITALS: BP 184/105; PULSE 56; RESP 20; TEMP 36.6; O2SAT 95
[2025-08-08 11:31] VITALS: BP 135/92; PULSE 61; RESP 20; TEMP 36.6; O2SAT 93
== END 2025-08-08 15:26 | disposition home or self-care (01) | DRG 464 ==
LOC: ED 10:58 → SS 11:13 → MEDSURG 14:10 → SS 16:14 → MEDSURG 16:14
PROVIDERS: Podiatrist; Admitting Provider Family Medicine; Emergency Provider Internal Medicine; PCP Family Medicine; Visit Provider Orthopaedic Surgery Sports Medicine
PROC: 0QBP0ZZ Excision of Left Metatarsal, Open Approach (ICD-10-PCS; principal; 2025-08-03 11:45)
PROC: 0JBR0ZZ Excision of Left Foot Subcutaneous Tissue and Fascia, Open Approach (ICD-10-PCS; principal; 2025-08-05 17:15)
DX: M00.072 Staphylococcal arthritis, left ankle and foot (principal); L03.116 Cellulitis of left lower limb; M1A.0721 Idiopathic chronic gout, left ankle and foot, with tophus (tophi); B95.61 Methicillin susceptible Staphylococcus aureus infection as the cause of diseases classified elsewhere; L97.529 Non-pressure chronic ulcer of other part of left foot with unspecified severity; R03.0 Elevated blood-pressure reading, without diagnosis of hypertension; M1A.0211 Idiopathic chronic gout, right elbow, with tophus (tophi); E78.5 Hyperlipidemia, unspecified; Z96.642 Presence of left artificial hip joint
CPT/HCPCS: 01470; 01480; 36415; 73701; 73720; 80048; 80053; 80069; 84145; 84443; 84550; 85025; 85027; 85651; 86140; 87040; 87070; 87075; 87186; 87205; 89060; 99140; 99284; 99285; J2003; A9270; A9575; J0330; J0665; J0690; J1100; J1171; J1885; J2250; J2405; J2543; J2704; J3010; J3375; J3490; J7030; J7120; J7512; Q9967

== ENCOUNTER 2025-08-11 14:17 | Outpatient (CLI) | payer OTHER, SELFPAY | END 2025-08-11 14:18 | disposition home or self-care (01) | PROVIDERS: PCP Family Medicine; Visit Provider Nurse Practitioner Family | DX: M00.9 Pyogenic arthritis, unspecified (principal); M1A.9XX1 Chronic gout, unspecified, with tophus (tophi) | CPT/HCPCS: G0463 ==

== ENCOUNTER 2025-08-18 14:13 | Outpatient (CLI) | payer OTHER, SELFPAY | END 2025-08-18 14:14 | disposition home or self-care (01) | LOC: WOUND 14:13 | PROVIDERS: PCP Family Medicine; Visit Provider Physician Assistant Surgical | DX: L02.611 Cutaneous abscess of right foot (principal); M00.9 Pyogenic arthritis, unspecified; M1A.9XX1 Chronic gout, unspecified, with tophus (tophi) | CPT/HCPCS: 11043 ==